=== PATIENT | female | born 1940 | race Caucasian/White ===

== ENCOUNTER 2016-10-13 20:38 | Emergency (ER) | payer MEDICARE, OTHER ==
--- NOTE | 2016-10-13 20:48 | ERNOTE ---
Chest Pain/Cardiac HPI Time Seen by Provider: 10/13/16 20:44 Source: patient Exam Limitations: clinical condition Immunizations: IMMUNIZATION HX Immunizations Up to Date Yes History of Influenza Vaccine Yes Hx Pneumococcal Vaccination Yes Allergies/Adverse Reactions: Allergies chocolate flavor Allergy (Intermediate, Verified 06/29/16 08:44) Anaphylaxis ibuprofen Allergy (Mild, Verified 06/29/16 08:44) Nausea aspirin Adverse Reaction (Mild, Verified 06/29/16 08:44) Vomiting UPSET STOMACH Penicillins Adverse Reaction (Mild, Verified 06/29/16 08:44) Vomiting UPSET STOMACH Salicylates * [Salicylates] Adverse Reaction (Mild, Verified 06/29/16 08:44) Nausea Sulfa (Sulfonamide Antibiotics) [Sulfa(Sulfonamide Antibiotics)] Adverse Reaction (Mild, Verified 06/29/16 08:44) Vomiting UPSET STOMACH cabbage Allergy (Mild, Uncoded 06/29/16 08:44) Other Home Medications: HOME MEDICATIONS Aspirin [Aspirin Enteric Coated] 81 mg PO DAILY 09/09/13 [Last Taken Unknown] Gabapentin 400 mg PO TID 09/09/13 [Last Taken Unknown] Pramipexole Di-HCl [Mirapex] 0.125 mg PO HS 09/09/13 [Last Taken Unknown] Pravastatin Sodium 40 mg PO DAILY 09/09/13 [Last Taken Unknown] lamoTRIgine [Lamictal] 100 mg PO DAILY 09/09/13 [Last Taken Unknown] Bisacodyl [Dulcolax] 5 mg PO DAILY PRN 01/05/14 [Last Taken Unknown] Nitroglycerin 0.4 mg SL Q5MIN PRN 01/05/14 [Last Taken Unknown] ALPRAZolam [Xanax] 0.25 mg PO BID PRN 05/11/14 [Last Taken Unknown] Bupropion HCl [Wellbutrin Xl] 300 mg PO DAILY 05/11/14 [Last Taken Unknown] Omeprazole [Prilosec] 40 mg PO DAILY 05/11/14 [Last Taken Unknown] Tolterodine Tartrate [Detrol LA] 2 mg PO DAILY 12/22/15 [Last Taken Unknown] Clopidogrel Bisulfate [Plavix] 75 mg PO DAILY 12/27/15 [Last Taken Unknown] Cyanocobalamin [Vitamin B-12] 500 mcg PO DAILY 12/27/15 [Last Taken Unknown] Hydrocodone/Acetaminophen [[place] 5-325 Tablet] 1 each PO QID PRN 12/27/15 [Last Taken Unknown] Albuterol Sulfate 2.5 mg IH BID PRN 12/28/15 [Last Taken Unknown] Cholecalciferol (Vitamin D3) [Vitamin D3] 3,000 unit PO DAILY 12/28/15 [Last Taken Unknown] Nystatin [Mycostatin Cream] 30 gm TP BID 03/24/16 [Last Taken Unknown] Narrative: Pt has had epigastric abdominal and substernal pain throughout the day. Had some sweats later on in the afternoon. Has been short of breath Timing: constant Severity/Quality: moderate Location: substernal, central, epigastric Chest Pain Radiation: no radiation Activities at Onset: none Nitro Today/Relief: 0.4 mg x 1, provided by EMS Aspirin Treatment Today: 81 mg x 1, provided at home Associated Symptoms: Present: shortness of breath Review of Systems - Review of Systems Constitutional: Present: weakness EYE: Present: no symptoms reported ENT: Absent: nose congestion, nasal drainage Respiratory: Present: shortness of breath Cardiology: Present: See HPI Gastrointestinal/Abdominal: Present: See HPI Genitourinary: Present: no symptoms reported Musculoskeletal: Present: no symptoms reported Skin: Present: no symptoms reported Neurological: Present: no symptoms reported Endocrine: Present: no symptoms reported Hematologic/Lymphatic: Present: no symptoms reported Psych: Present: no symptoms reported - Patient's Past Medical History Patient History - Medical: Arthritis, Diabetes Type 2, Depression, GERD, Glaucoma, Headache, Obesity, Renal Failure Patient History - Cardiac/Respiratory: CVA/Stroke, Hypertension, Hyperlipidemia Patient History - Cancer: No Hx of Cancer, Ovarian Patient History - Surgical Procedures: Cholecystectomy, Colonoscopy, D & C, EGD , Hysterectomy, Total Hip Replacement, Total Knee Replacement, Other Patient History - Other: None - Family History Mother Family History - Medical: Family History - Cardiac/Respiratory: Coronary Heart Disease, CHF Father Family History - Medical: Family History - Cardiac/Respiratory: Coronary Heart Disease, CHF - Social History Living Situations: home Abuse History: No History of abuse Psych History: No pertinent hx Alcohol Use: none Drug Use: none - Immunizations Immunizations Up to Date: Yes Hx Pneumococcal Vaccination: Yes History of Influenza Vaccine: Yes Physical Exam - Physical Exam General Appearance: Present: wd/wn, alert, mild distress Ears, Nose, Throat: Present: normal ENT inspection Neck: Present: normal inspection, nontender Respiratory: Present: no respiratory distress, normal breath sounds, no accessory muscle use Cardiovascular/Chest: Present: regular rate, rhythm, no murmur, normal peripheral pulses Gastrointestinal/Abdominal: Present: tenderness - epigastric and RUQ mild/ mod Extremity Exam: Present: pedal edema - 1+ Neurological Exam: Present: alert, oriented, normal mood/affect Skin Exam: Present: normal color, warm/dry Departure - Departure Clinical Impression: Bronchitis Disposition: Home self-care Condition: Good Instructions: Acute Bronchitis, [id number] Additional Instructions: See your regular doctor if not improving. Use a humidifier especially when you sleep. May use mucinex 600 mg twice day if needed
[2016-10-13 21:17] LABS: Hematocrit 38.8 % (37.0-47.0); Hemoglobin 11.6 gm/dL (12.5-16.0); Mean Cell Volume 92.2 fl (78-100); Mean Corpuscular Hemoglobin 27.6 pg (27-31); Mean Corpuscular Hgb Conc 29.9 g/dl (32-36); Mean Platelet Volume 9.9 fl (6.0-9.5); Neutrophil # 3.4 K/mm3 (1.3-6.0); Neutrophil % 60.8 % (42-75.0); Platelet Count 144 K/mm3 (150-450); Red Blood Count 4.21 M/mm3 (4.2-5.4); Red Cell Distribution Width 14.5 % (11.5-14.0); White Blood Count 5.6 K/mm3 (4.0-10.5)
--- OUTSIDE RECORDS SUMMARY | 2016-10-13 21:21 | XMS REPORT | Continuity of Care Document ---
:1940 Author Organization [facility] ([facility]) Address [address] [place] [address] Phone [phone] Care Team Providers Name Role Phone Juan C Khanna Primary Care Provider [phone] Source Comments This disclosure is being made pursuant to the Care Everywhere program, applicable federal and state laws, and may not contain all informaitonavailable regarding this patient.[facility] ([facility]) Active Allergies and Adverse Reactions Allergen Noted Date Severity Reactions Comments Aspirin Stomach Pain can take enteric coated aspirin Cabbage Juice Unknown Chocolate Flavor Unknown Sulfadoxine Nausea & Vomiting,Stomach Pain Current Medications Prescription Sig. Disp. Refills Start Date End Date Status aspirin 81 mg tablet Take 81 mg by mouth Active daily. HYDROcodone-acetamino Take 1 Tab by mouth Active phen 5-325 mg per every 4 hours as tablet needed. nystatin 100,000 apply topically 2 Active unit/g ointment times daily. albuterol 2.5 mg/3 mL Use 3 mL by inhalation Active inhalation solution every 4 hours as needed. albuterol 90 Use 1-2 Puffs by Active mcg/Actuation inhaler inhalation every 4 hours as needed. nitroglycerin 0.[address] 0.4 mg under the Active SL tablet tongue every 5 minutes as needed. lamoTRIgine 100 mg Take 100 mg by mouth Active tablet daily. acetaminophen Take 500 mg by mouth Active (TYLENOL EXTRA every 6 hours as STRENGTH) 500 mg needed. tablet pramipexole 0.125 mg Take 0.125 mg by mouth Active tablet at bedtime. buPROPion (WELLBUTRIN Take 300 mg by mouth Active XL) 300 mg extended Every morning. release tablet 24 hour lisinopril 5 mg Take 5 mg by mouth Active tablet daily. promethazine 25 mg Take 12.5 mg by mouth Active tablet every 4 hours as needed. pravastatin 40 mg Take 40 mg by mouth Active tablet every evening. bisacodyl 5 mg tablet Take 5 mg by mouth as Active needed. cholecalciferol Take 1,000 Units by Active (VITAMIN D3) 1,000 mouth daily. unit tablet iron polysaccharide Take 150 mg by mouth 2 Active complex (POLY-IRON) times daily. 150 mg capsule glimepiride 1 mg Take 1 mg by mouth Active tablet Every morning. cyanocobalamin Take 500 mcg by mouth Active (VITAMIN B-12) 500 daily. mcg tablet pantoprazole 40 mg EC Take 40 mg by mouth Active tablet daily. gabapentin 300 mg Take 300 mg by mouth 3 Active capsule times daily. famotidine 20 mg Take 1 Tab by mouth 30 Tab 2 08/27/2013 Active tablet every evening. Indications: GASTROESOPHAGEAL REFLUX Active Problems Problem Noted Date Dysphagia 11/29/2012 EDENTULOUS 11/29/2012 DM type 2 (diabetes mellitus, type 2) 11/29/2012 Overview: Last A1C 5.8% Resolved Problems Problem Noted Date Resolved Date Dizziness and giddiness 07/07/2006 11/29/2012 Other malaise and fatigue 07/07/2006 11/29/2012 Nausea with vomiting 07/07/2006 11/29/2012 Social History Tobacco Use Types Packs/Day Years Used Date Former Smoker Cigarettes 2 25 Quit: 08/31/1989 Smokeless Tobacco: Never Used Alcohol Use Drinks/Week oz/Week Comments No Last Filed Vital Signs Vital Sign Reading Time Taken Blood Pressure 148/86 11/29/2012 8:46 AM CDT Pulse 71 11/29/2012 8:46 AM CDT Temperature 37.1 C (98.8 F) 11/29/2012 8:40 AM CDT Respiratory Rate 20 11/29/2012 8:40 AM CDT Height 1.65 m (5' 4.96") 11/29/2012 8:40 AM CDT Weight 107.049 kg (236 lb) 11/29/2012 8:40 AM CDT Body Mass Index 39.32 11/29/2012 8:40 AM CDT Oxygen Saturation - - Plan of Care Health Maintenance Due Date Last Done Comments Hepatitis B Vaccine (1 of 3 - Primary Series) 1940 Tdap Vaccine 02/19/1951 Lipid Disorder Screening 02/19/1958 Td Vaccine 02/19/1958 Mammogram 1980 Colonoscopy 02/19/1990 Zoster Vaccine 2000 Osteoporosis Screening (DXA Bone Density) 02/19/2005 Pneumococcal Vaccine (1 of 2 - PCV13) 02/19/2005 Influenza Vaccine: Seasonal (#1) 03/28/2016 Results from Last 3 Months Not on file
[2016-10-13 21:27] LABS: ALT 19 U/L (19-67); AST 20 U/L (0-48); Albumin * 3.5 gm/dl (3.4-5.0); Alkaline Phosphatase * 85 U/L (50-170); Amylase * 41 U/L (25-115); Anion Gap 11.4 mmol/L (6.8-13.8); BUN/Creatinine Ratio 9.1 (9.0-21.6); Bilirubin, Total 0.2 mg/dL (0.0-1.1); Blood Urea Nitrogen 15 mg/dL (3-23); Ca. Corrected For Albumin 9.1 mg/dL (8.4-10.2); Carbon Dioxide 29.7 mmol/L (24-32.6); Chloride 105 mmol/L (97-106); Glucose * 125 mg/dL (70-110); Lipase 108 U/L (73-393); Potassium 4.1 mmol/L (3.4-4.6); Sodium 142 mmol/L (132-142); Total Protein 7.2 gm/dL (6.2-8.2)
[2016-10-13 21:28] LABS: Troponin I Less than 0.017 ng/ml (0.00-0.10)
[2016-10-14 02:05] VITALS: BP 144/62
== END 2016-10-14 02:00 | disposition home or self-care (01) ==
LOC: ER 20:38
DX: J20.9 Acute bronchitis, unspecified (principal)

== ENCOUNTER 2016-10-31 17:15 | Emergency (ER) | payer MEDICARE, OTHER ==
--- NOTE | 2016-10-31 18:05 | ERNOTE ---
Medical Problem HPI - General Chief Complaint: Foreign Body Time Seen by Provider: 10/31/16 17:52 Source: patient Exam Limitations: no limitations - Immun/Allergies/Home Medications Immunizations: IMMUNIZATION HX Immunizations Up to Date Yes History of Influenza Vaccine Yes Hx Pneumococcal Vaccination Yes Allergies/Adverse Reactions: Allergies chocolate flavor Allergy (Intermediate, Verified 10/31/16 17:21) Anaphylaxis ibuprofen Allergy (Mild, Verified 10/31/16 17:21) Nausea aspirin Adverse Reaction (Mild, Verified 10/31/16 17:21) Vomiting UPSET STOMACH Penicillins Adverse Reaction (Mild, Verified 10/31/16 17:21) Vomiting UPSET STOMACH Salicylates * [Salicylates] Adverse Reaction (Mild, Verified 10/31/16 17:21) Nausea Sulfa (Sulfonamide Antibiotics) [Sulfa(Sulfonamide Antibiotics)] Adverse Reaction (Mild, Verified 10/31/16 17:21) Vomiting UPSET STOMACH cabbage Allergy (Mild, Uncoded 10/31/16 17:21) Other Home Medications: HOME MEDICATIONS Aspirin [Aspirin Enteric Coated] 81 mg PO DAILY 09/09/13 [Last Taken Unknown] Gabapentin 400 mg PO TID 09/09/13 [Last Taken Unknown] Pramipexole Di-HCl [Mirapex] 0.125 mg PO HS 09/09/13 [Last Taken Unknown] Pravastatin Sodium 40 mg PO DAILY 09/09/13 [Last Taken Unknown] lamoTRIgine [Lamictal] 100 mg PO DAILY 09/09/13 [Last Taken Unknown] Bisacodyl [Dulcolax] 5 mg PO DAILY PRN 01/05/14 [Last Taken Unknown] Nitroglycerin 0.4 mg SL Q5MIN PRN 01/05/14 [Last Taken Unknown] ALPRAZolam [Xanax] 0.25 mg PO BID PRN 05/11/14 [Last Taken Unknown] Bupropion HCl [Wellbutrin Xl] 300 mg PO DAILY 05/11/14 [Last Taken Unknown] Omeprazole [Prilosec] 40 mg PO DAILY 05/11/14 [Last Taken Unknown] Tolterodine Tartrate [Detrol LA] 2 mg PO DAILY 12/22/15 [Last Taken Unknown] Clopidogrel Bisulfate [Plavix] 75 mg PO DAILY 12/27/15 [Last Taken Unknown] Cyanocobalamin [Vitamin B-12] 500 mcg PO DAILY 12/27/15 [Last Taken Unknown] Hydrocodone/Acetaminophen [[place] 5-325 Tablet] 1 each PO QID PRN 12/27/15 [Last Taken Unknown] Albuterol Sulfate 2.5 mg IH BID PRN 12/28/15 [Last Taken Unknown] Cholecalciferol (Vitamin D3) [Vitamin D3] 3,000 unit PO DAILY 12/28/15 [Last Taken Unknown] Nystatin [Mycostatin Cream] 30 gm TP BID 03/24/16 [Last Taken Unknown] - History of Present History Narrative: Patient was sowing and put a safety pin between her lips and felt that she accidentally swallowed it. She tried to dig it out with her fingers and still feels like there is something in her throat, denies cough, nausea, vomiting or pain Date (Duration): 10/31/16 Review of Systems - Review of Systems Constitutional: Absent: recent illness, fever ENT: Present: See HPI, sore throat. Absent: nose congestion Respiratory: Absent: shortness of breath, cough Cardiology: Absent: chest pain Gastrointestinal/Abdominal: Absent: nausea, vomiting, abdominal pain - Patient's Past Medical History Patient History - Medical: Arthritis, Diabetes Type 2, Depression, GERD, Glaucoma, Headache, Obesity, Renal Failure Patient History - Cardiac/Respiratory: CVA/Stroke, Hypertension, Hyperlipidemia Patient History - Cancer: No Hx of Cancer, Ovarian Patient History - Surgical Procedures: Cholecystectomy, Colonoscopy, D & C, EGD , Hysterectomy, Total Hip Replacement, Total Knee Replacement, Other Patient History - Other: None LMP (females 10-50): Menopausal - Family History Mother Family History - Medical: Family History - Cardiac/Respiratory: Coronary Heart Disease, CHF Father Family History - Medical: Family History - Cardiac/Respiratory: Coronary Heart Disease, CHF - Social History Living Situations: home Abuse History: No History of abuse Psych History: No pertinent hx Alcohol Use: none Drug Use: none - Immunizations Immunizations Up to Date: Yes Hx Pneumococcal Vaccination: Yes History of Influenza Vaccine: Yes Physical Exam - Physical Exam General Appearance: Present: wd/wn, alert, no apparent distress, obese Eye Exam: Normal inspection: bilateral Ears, Nose, Throat: Present: other - superficial abrasion on posterior pharynx, no active bleeding Neck: Present: normal inspection Respiratory: Present: no respiratory distress, normal breath sounds, no accessory muscle use, lungs clear Cardiovascular/Chest: Present: regular rate, rhythm, no murmur Gastrointestinal/Abdominal: Present: normal bowel sounds, nontender, nondistended, soft Neurological Exam: Present: alert, oriented, normal mood/affect Skin Exam: Present: normal color, warm/dry ED Progress - Vital Signs Patient's Vital Signs:: I have reviewed the patient's vital signs. Vital Signs: Vital Signs 10/31/16 17:17 Temperature 38.0 C H Pulse Rate 83 Respiratory 19 Rate Blood Pressure 174/78 O2 Sat by Pulse 93 Oximetry - X-Ray X-Ray #1 X-Ray: chest - no foreign body Interpretation: Interp. by me X-Ray #2 X-Ray: abdomen - no foreign body Interpretation: Interp. by me X-Ray #3 X-Ray: soft tissue neck: no foreign body Interpretation: Interp. by me - Progress/Reassessment Chief Complaint: Foreign Body Departure - Departure Clinical Impression: Abrasion of pharynx Qualifiers: Encounter type: initial encounter Qualified Code(s): S10.11XA - Abrasion of throat, initial encounter Disposition: Home self-care Condition: Good Instructions: Swallowed Foreign Body, Adult, [id number] Referrals: Juan C Khanna MD [Staff Physician] -
--- OUTSIDE RECORDS SUMMARY | 2016-10-31 18:06 | XMS REPORT | Continuity of Care Document ---
:1940 Author Organization [facility] ([facility]) Address [address] [place] [address] Phone [phone] Care Team Providers Name Role Phone Juan C Khanna Primary Care Provider [phone] Source Comments This disclosure is being made pursuant to the Care Everywhere program, applicable federal and state laws, and may not contain all informaitonavailable regarding this patient.[facility] ([facility]) Active Allergies and Adverse Reactions [...]
[2016-10-31 19:27] VITALS: BP 142/88
== END 2016-10-31 19:00 | disposition home or self-care (01) ==
LOC: ER 17:15
DX: S10.11XA Abrasion of throat, initial encounter (principal); X58.XXXA Exposure to other specified factors, initial encounter; Y93.D2 Activity, sewing; Y92.009 Unspecified place in unspecified non-institutional (private) residence as the place of occurrence of the external cause

== ENCOUNTER 2016-12-09 12:38 | Emergency (ER) | payer MEDICARE, OTHER ==
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
--- OUTSIDE RECORDS SUMMARY | 2016-12-09 13:51 | XMS REPORT | Continuity of Care Document ---
:1940 Author Organization [facility] ([facility]) Address [address] [place] [address] Phone [phone] Care Team Providers Name Role Phone Juan C Khanna Primary Care Provider [phone] Source Comments This disclosure is being made pursuant to the Care Everywhere program, applicable federal and state laws, and may not contain all informaitonavailable regarding this patient.[facility] ([facility]) Active Allergies and Adverse Reactions [...]
[2016-12-09 13:58] LABS: Hematocrit 34.3 % (37.0-47.0); Hemoglobin 10.2 gm/dL (12.5-16.0); Mean Cell Volume 92.5 fl (78-100); Mean Corpuscular Hemoglobin 27.5 pg (27-31); Mean Corpuscular Hgb Conc 29.7 g/dl (32-36); Mean Platelet Volume 9.5 fl (6.0-9.5); Neutrophil # 6.5 K/mm3 (1.3-6.0); Neutrophil % 78.8 % (42-75.0); Platelet Count 136 K/mm3 (150-450); Red Blood Count 3.71 M/mm3 (4.2-5.4); White Blood Count 8.2 K/mm3 (4.0-10.5)
[2016-12-09 13:59] LABS: Urine Bilirubin Negative (NEGATIVE); Urine Blood 250 /ul (NEGATIVE); Urine Ketone Negative (NEGATIVE); Urine Nitrite Negative (NEGATIVE); Urine Protein 30 mg/dL (NEGATIVE); Urine Urobilinogen Normal (NORMAL); Urine pH 6.5 pH (5.0-7.0)
[2016-12-09 14:09] LABS: Urine Appearance Slightly Cloudy; Urine Color Yellow
[2016-12-09 14:10] LABS: Urine Bacteria TRACE; Urine WBC None Seen /hpf (0-5)
[2016-12-09 14:14] LABS: Albumin * 3.7 gm/dl (3.4-5.0); Anion Gap 11.1 mmol/L (6.8-13.8); Bilirubin, Total 0.4 mg/dL (0.0-1.1); Ca. Corrected For Albumin 8.7 mg/dL (8.4-10.2); Calcium * 8.8 mg/dL (7.9-10.9); Potassium 4.1 mmol/L (3.4-4.6); TSH * 1.045 uIU/mL (0.358-3.74); Total Protein 7.2 gm/dL (6.2-8.2)
[2016-12-09] MEDS ORDERED: ACETAMINOPHEN 325 MG TABLET ONE (16:44)
[2016-12-09] MEDS ORDERED: ACETAMINOPHEN 325 MG TABLET PO ONE (16:44)
[2016-12-09 18:05] VITALS: BP 119/54
== END 2016-12-09 20:01 | disposition home or self-care (01) ==
LOC: ER 12:38
DX: R53.1 Weakness (principal); Z85.43 Personal history of malignant neoplasm of ovary; Z86.73 Personal history of transient ischemic attack (TIA), and cerebral infarction without residual deficits; E11.9 Type 2 diabetes mellitus without complications; K21.9 Gastro-esophageal reflux disease without esophagitis; E78.5 Hyperlipidemia, unspecified

== ENCOUNTER 2016-12-21 07:03 | Observation (INO) | payer MEDICARE, OTHER ==
--- NOTE | 2016-12-21 07:07 | ERNOTE ---
Medical Problem HPI - General Time Seen by Provider: 12/21/16 07:06 Source: patient Exam Limitations: no limitations - Immun/Allergies/Home Medications Immunizations: IMMUNIZATION HX Immunizations Up to Date Yes History of Influenza Vaccine Yes Hx Pneumococcal Vaccination Yes Allergies/Adverse Reactions: Allergies chocolate flavor Allergy (Intermediate, Verified 12/21/16 07:10) Anaphylaxis ibuprofen Allergy (Mild, Verified 12/21/16 07:10) Nausea aspirin Adverse Reaction (Mild, Verified 12/21/16 07:10) Vomiting UPSET STOMACH Penicillins Adverse Reaction (Mild, Verified 12/21/16 07:10) Vomiting UPSET STOMACH Salicylates * [Salicylates] Adverse Reaction (Mild, Verified 12/21/16 07:10) Nausea Sulfa (Sulfonamide Antibiotics) [Sulfa(Sulfonamide Antibiotics)] Adverse Reaction (Mild, Verified 12/21/16 07:10) Vomiting UPSET STOMACH cabbage Allergy (Mild, Uncoded 12/21/16 07:10) Other Home Medications: HOME MEDICATIONS Aspirin [Aspirin Enteric Coated] 81 mg PO DAILY 09/09/13 [Last Taken Unknown] Gabapentin 400 mg PO TID 09/09/13 [Last Taken Unknown] Pramipexole Di-HCl [Mirapex] 0.125 mg PO HS 09/09/13 [Last Taken Unknown] Pravastatin Sodium 40 mg PO DAILY 09/09/13 [Last Taken Unknown] lamoTRIgine [Lamictal] 100 mg PO DAILY 09/09/13 [Last Taken Unknown] Bisacodyl [Dulcolax] 5 mg PO DAILY PRN 01/05/14 [Last Taken Unknown] Nitroglycerin 0.4 mg SL Q5MIN PRN 01/05/14 [Last Taken Unknown] ALPRAZolam [Xanax] 0.25 mg PO BID PRN 05/11/14 [Last Taken Unknown] Bupropion HCl [Wellbutrin Xl] 300 mg PO DAILY 05/11/14 [Last Taken Unknown] Omeprazole [Prilosec] 40 mg PO DAILY 05/11/14 [Last Taken Unknown] Tolterodine Tartrate [Detrol LA] 2 mg PO DAILY 12/22/15 [Last Taken Unknown] Clopidogrel Bisulfate [Plavix] 75 mg PO DAILY 12/27/15 [Last Taken Unknown] Cyanocobalamin [Vitamin B-12] 500 mcg PO DAILY 12/27/15 [Last Taken Unknown] HYDROcodone/ACETAMINOPHEN [[place] 5-325 Tablet] 1 each PO QID PRN 12/27/15 [Last Taken Unknown] Albuterol Sulfate 2.5 mg IH BID PRN 12/28/15 [Last Taken Unknown] Cholecalciferol (Vitamin D3) [Vitamin D3] 3,000 unit PO DAILY 12/28/15 [Last Taken Unknown] Nystatin [Mycostatin Cream] 30 gm TP BID 03/24/16 [Last Taken Unknown] - History of Present History Narrative: Pt states that she "just doesn't feel well". She points to her chest but denies chest pain, denies shortness of breath. Timing: getting worse Severity: mild, moderate Review of Systems - Review of Systems Constitutional: Present: fatigue. Absent: recent illness, fever EYE: Present: no symptoms reported ENT: Present: no symptoms reported Respiratory: Absent: shortness of breath Cardiology: Absent: chest pain Gastrointestinal/Abdominal: Absent: nausea, vomiting Genitourinary: Present: frequency. Absent: pain, dysuria Musculoskeletal: Present: no symptoms reported Skin: Present: no symptoms reported Neurological: Present: weakness - in general Endocrine: Present: no symptoms reported Hematologic/Lymphatic: Present: no symptoms reported Psych: Present: no symptoms reported - Patient's Past Medical History Patient History - Medical: Arthritis, Diabetes Type 2, Depression, GERD, Glaucoma, Headache, Obesity, Renal Failure Patient History - Cardiac/Respiratory: CVA/Stroke, Hypertension, Hyperlipidemia Patient History - Cancer: Ovarian Patient History - Surgical Procedures: Cholecystectomy, Colonoscopy, D & C, EGD , Hysterectomy, Total Hip Replacement, Total Knee Replacement, Other Patient History - Other: None - Family History Mother Family History - Medical: Family History - Cardiac/Respiratory: Coronary Heart Disease, CHF Father Family History - Medical: Family History - Cardiac/Respiratory: Coronary Heart Disease, CHF - Social History Living Situations: assisted living Abuse History: No History of abuse Psych History: No pertinent hx Alcohol Use: none Drug Use: none - Immunizations Immunizations Up to Date: Yes Hx Pneumococcal Vaccination: Yes History of Influenza Vaccine: Yes Physical Exam - Physical Exam General Appearance: Present: wd/wn, alert, no apparent distress Ears, Nose, Throat: Present: normal ENT inspection Neck: Present: normal inspection, nontender Respiratory: Present: no respiratory distress, normal breath sounds Cardiovascular/Chest: Present: regular rate, rhythm, no murmur Gastrointestinal/Abdominal: Present: normal bowel sounds, tenderness - bilateral mid abdomen. Absent: distended, guarding, rebound Neurological Exam: Present: alert, oriented, normal mood/affect Skin Exam: Present: normal color, warm/dry ED Progress - Transfer of Care Physician Sign Out: Harry Rock Receiving Physician: Jared Silva Pending Results: Labs, X-ray results Expected Disposition: Discharge Departure - Departure Clinical Impression: UTI (urinary tract infection) Referrals: Juan C Khanna MD [Primary Care Provider] -
--- OUTSIDE RECORDS SUMMARY | 2016-12-21 07:20 | XMS REPORT | Continuity of Care Document ---
:1940 Author Organization [facility] ([facility]) Address [address] [place] [address] Phone [phone] Care Team Providers Name Role Phone Juan C Khanna Primary Care Provider [phone] Source Comments This disclosure is being made pursuant to the Care Everywhere program, applicable federal and state laws, and may not contain all informaitonavailable regarding this patient.[facility] ([facility]) Active Allergies and Adverse Reactions Allergen Noted [...]
[2016-12-21 07:38] LABS: Hematocrit 35.4 % (37.0-47.0); Hemoglobin 10.6 gm/dL (12.5-16.0); Mean Cell Volume 91.5 fl (78-100); Mean Corpuscular Hemoglobin 27.4 pg (27-31); Mean Corpuscular Hgb Conc 29.9 g/dl (32-36); Mean Platelet Volume 8.9 fl (6.0-9.5); Neutrophil # 4.2 K/mm3 (1.3-6.0); Neutrophil % 79.1 % (42-75.0); Platelet Count 136 K/mm3 (150-450); Red Blood Count 3.87 M/mm3 (4.2-5.4); White Blood Count 5.3 K/mm3 (4.0-10.5)
[2016-12-21 07:42] LABS: Urine Bilirubin Negative (NEGATIVE); Urine Blood 25 /ul (NEGATIVE); Urine Ketone Negative (NEGATIVE); Urine Nitrite Negative (NEGATIVE); Urine Protein 15 mg/dL (NEGATIVE); Urine Specific Gravity 1.015 SP.GR. (1.005-1.010); Urine Urobilinogen Normal (NORMAL)
[2016-12-21 07:52] LABS: Urine Appearance Cloudy; Urine Bacteria 3+; Urine Color Pale Yellow; Urine WBC >50 /hpf (0-5)
[2016-12-21 07:53] LABS: Albumin * 3.4 gm/dl (3.4-5.0); Anion Gap 10.8 mmol/L (6.8-13.8); BUN/Creatinine Ratio 10.4 (9.0-21.6); Bilirubin, Total 0.4 mg/dL (0.0-1.1); Ca. Corrected For Albumin 9.4 mg/dL (8.4-10.2); Calcium * 9.2 mg/dL (7.9-10.9); Carbon Dioxide 30.6 mmol/L (24-32.6); Potassium 4.4 mmol/L (3.4-4.6); Total Protein 7.4 gm/dL (6.2-8.2)
[2016-12-21] MEDS ORDERED: LEVOFLOXACIN/D5W 500 MG/100 ML BAG IV SCH (08:30)
[2016-12-21] MEDS ORDERED: ACETAMINOPHEN 500 MG TABLET PO ONE (08:59)
[2016-12-21] MEDS ORDERED: LEVOFLOXACIN/D5W 500 MG/100 ML BAG IV ONE (09:15)
--- OUTSIDE RECORDS SUMMARY | 2016-12-21 09:35 | XMS REPORT | Continuity of Care Document ---
:1940 Author Organization [facility] ([facility]) Address [address] [place] [address] Phone [phone] Care Team Providers Name Role Phone Juan C Khanna Primary Care Provider [phone] Source Comments This disclosure is being made pursuant to the Care Everywhere program, applicable federal and state laws, and may not contain all informaitonavailable regarding this patient.[facility] ([facility]) Active Allergies and Adverse Reactions Allergen Noted [...]
[2016-12-21] MEDS ORDERED: NITROGLYCERIN 0.4 MG/TAB BTL SL PRN (11:00)
[2016-12-21] MEDS ORDERED: BISACODYL 5 MG TABLET.DR PO PRN (11:00)
[2016-12-21] MEDS ORDERED: ALBUTEROL SULFATE 2.5 MG/3 ML VIAL.NEB IH PRN (11:00)
[2016-12-21] MEDS: 0.5 NORMAL SALINE 1,000 ML IV PRN ×2 (12:11→22:21)
[2016-12-21] MEDS: CIPROFLOXACIN LACTATE/D5W 400 MG/200 ML BAG IV SCH ×2 (12:11→22:21)
--- NOTE | 2016-12-21 12:13 | HP ---
Chief Complaint - Chief Complaint Date of Service: 12/21/16 Time of Service: 12:03 Chief Complaint: generalized weakness/falls History of Present Illness: Betzy Matute, is a 76-year-old white female, with previous medical history of coronary artery disease, CVA, diabetes mellitus type 2, chronic renal failure stage III, hypertension, who was brought to the emergency room on 12/21/2016 because of generalized weakness and falls. The patient for the last few days has been getting much more weaker and has had been having falls . She says that her knees would just give out on her. In the emergency room she was found to have a urinary tract infection for which she was started on oral antibiotics and sent home. She came back the following day still with generalized weakness and just felt that she just could not go home. She was then admitted for observation and started on IV antibiotics awaiting cultures. She will be referred to physical therapy and be started on some IV fluids.She does not want to go to a NH to get stronger before going home. - Patient's Past Medical History Patient History - Medical: Arthritis, Diabetes Type 2, Depression, GERD, Glaucoma, Headache, Obesity, Renal Failure Patient History - Cardiac/Respiratory: CVA/Stroke, Hypertension, Hyperlipidemia Patient History - Cancer: Ovarian Patient History - Surgical Procedures: Cholecystectomy, Colonoscopy, D & C, EGD , Hysterectomy, Total Hip Replacement, Total Knee Replacement, Other Patient History - Other: None - Family History Mother Family History - Medical: Family History - Cardiac/Respiratory: Coronary Heart Disease, CHF Father Family History - Medical: Family History - Cardiac/Respiratory: Coronary Heart Disease, CHF - Social History Living Situations: assisted living Abuse History: No History of abuse Psych History: No pertinent hx Smoking Status: Former smoker Have you smoked in the past 12 months: No Alcohol Use: none Drug Use: none - Immunizations Immunizations Up to Date: Yes Hx Pneumococcal Vaccination: Yes History of Influenza Vaccine: Yes Review Of Systems (GEN) - Review of Systems Generalized/Overall Review: Present: Weakness. Absent: Chills, Fever EENTM: Present: No Symptoms Reported Respiratory: Present: Shortness of Breath. Absent: Cough Cardiac: Absent: Chest Pain, Edema, Palpitations Abdominal: Present: Other - dyspepsia. Absent: Nausea, Vomiting Genitourinary: Present: Frequency. Absent: Itching, Urgency Musculoskeletal: Present: Joint Pain Allergies/Adverse Reactions: Allergies Allergy/AdvReac Type Severity Reaction Status Date / Time chocolate flavor Allergy Intermediate Anaphylaxis Verified 12/21/16 07:10 ibuprofen Allergy Mild Nausea Verified 12/21/16 07:10 aspirin AdvReac Mild Vomiting Verified 12/21/16 07:10 Penicillins AdvReac Mild Vomiting Verified 12/21/16 07:10 Salicylates * [Salicylates] AdvReac Mild Nausea Verified 12/21/16 07:10 Sulfa (Sulfonamide AdvReac Mild Vomiting Verified 12/21/16 07:10 Antibiotics) [Sulfa(Sulfonamide Antibiotics)] cabbage Allergy Mild Other Uncoded 12/21/16 07:10 Home Medications: HOME MEDICATIONS Aspirin [Aspirin Enteric Coated] 81 mg PO DAILY 09/09/13 [Last Taken Unknown] Gabapentin 400 mg PO TID 09/09/13 [Last Taken Unknown] Pramipexole Di-HCl [Mirapex] 0.125 mg PO HS 09/09/13 [Last Taken Unknown] Pravastatin Sodium 40 mg PO DAILY 09/09/13 [Last Taken Unknown] lamoTRIgine [Lamictal] 100 mg PO DAILY 09/09/13 [Last Taken Unknown] Bisacodyl [Dulcolax] 5 mg PO DAILY PRN 01/05/14 [Last Taken Unknown] Nitroglycerin 0.4 mg SL Q5MIN PRN 01/05/14 [Last Taken Unknown] ALPRAZolam [Xanax] 0.25 mg PO BID PRN 05/11/14 [Last Taken Unknown] Bupropion HCl [Wellbutrin Xl] 300 mg PO DAILY 05/11/14 [Last Taken Unknown] Omeprazole [Prilosec] 40 mg PO DAILY 05/11/14 [Last Taken Unknown] Tolterodine Tartrate [Detrol LA] 2 mg PO DAILY 12/22/15 [Last Taken Unknown] Clopidogrel Bisulfate [Plavix] 75 mg PO DAILY 12/27/15 [Last Taken Unknown] Cyanocobalamin [Vitamin B-12] 500 mcg PO DAILY 12/27/15 [Last Taken Unknown] HYDROcodone/ACETAMINOPHEN [[place] 5-325 Tablet] 1 each PO QID PRN 12/27/15 [Last Taken Unknown] Albuterol Sulfate 2.5 mg IH BID PRN 12/28/15 [Last Taken Unknown] Cholecalciferol (Vitamin D3) [Vitamin D3] 3,000 unit PO DAILY 12/28/15 [Last Taken Unknown] Nystatin [Mycostatin Cream] 30 gm TP BID 03/24/16 [Last Taken Unknown] Exam - Exam Vital Signs: Vital Signs - Last Taken Temp 36.7 C 12/21/16 09:56 Pulse 75 12/21/16 09:56 Resp 16 12/21/16 09:56 BP 130/78 12/21/16 09:56 Pulse Ox 98 12/21/16 09:56 Constitutional: Present: Alert, Oriented x3, Cooperative, Morbidly obese ENT Exam: Present: hearing grossly normal Eye Exam: bilateral eye: normal inspection, PERRL, EOMI Neck: Present: supple Back Exam: Present: no CVA tenderness Breasts: Present: Exam deferred Respiratory: Present: normal breath sounds, No rales, No wheezing Cardiovascular/Chest: Present: regular rate, rhythm, no JVD, no murmur Abdomen: Present: Normal bowel sounds, soft, nontender, nondistended Extremity: Present: no calf tenderness, pedal edema Diagnostic Studies: Laboratory Results WBC 5.3 K/mm3 (4.0-10.5) 12/21/16 07:30 RBC 3.87 M/mm3 (4.2-5.4) L 12/21/16 07:30 Hgb 10.6 gm/dL (12.5-16.0) L 12/21/16 07:30 Hct 35.4 % (37.0-47.0) L 12/21/16 07:30 MCV 91.5 fl (78-100) 12/21/16 07:30 MCH 27.4 pg (27-31) 12/21/16 07:30 MCHC 29.9 g/dl (32-36) L 12/21/16 07:30 RDW 15.0 % (11.5-14.0) H 12/21/16 07:30 Plt Count 136 K/mm3 (150-450) L 12/21/16 07:30 MPV 8.9 fl (6.0-9.5) 12/21/16 07:30 Immature Gran % (Auto) 0.20 % (0.001-0.429) 12/21/16 07:30 Immature Gran # (Auto) 0.01 K/mm3 (0.000-0.0310) 12/21/16 07:30 Neutrophils % 79.1 % (42-75.0) H 12/21/16 07:30 Lymphocytes % 10.2 % (20-51) L 12/21/16 07:30 Monocytes % 7.9 % (0.0-9) 12/21/16 07:30 Eosinophils % 2.4 % (0.0-3.0) 12/21/16 07:30 Basophils % 0.2 % (0.0-1.0) 12/21/16 07:30 Nucleated RBC % 0.0 k/mm3 (0-1) 12/21/16 07:30 Neutrophils # 4.2 K/mm3 (1.3-6.0) 12/21/16 07:30 Lymphocytes # 0.5 k/mm3 (1.5-3.5) L 12/21/16 07:30 Monocytes # 0.4 k/mm3 (0.0-1.0) 12/21/16 07:30 Eosinophils # 0.1 k/mm3 (0.0-0.7) 12/21/16 07:30 Absolute Basophils 0.0 k/mm3 (0.0-0.1) 12/21/16 07:30 Sodium 144 mmol/L (132-142) H 12/21/16 07:30 Plasma Sodium 144 mmol/L (130-142) H 12/21/16 07:30 Potassium 4.4 mmol/L (3.4-4.6) 12/21/16 07:30 Chloride 107 mmol/L (97-106) H 12/21/16 07:30 Carbon Dioxide 30.6 mmol/L (24-32.6) 12/21/16 07:30 Anion Gap 10.8 mmol/L (6.8-13.8) 12/21/16 07:30 BUN 17 mg/dL (3-23) 12/21/16 07:30 Creatinine 1.64 mg/dL (0.4-1.4) H 12/21/16 07:30 Est GFR (Non-Af Amer) 32 mL/min (60-130) L 12/21/16 07:30 BUN/Creatinine Ratio 10.4 (9.0-21.6) 12/21/16 07:30 Random Glucose 125 mg/dL (70-110) H 12/21/16 07:30 Calcium 9.2 mg/dL (7.9-10.9) 12/21/16 07:30 Calcium Adj for Albumin 9.4 mg/dL (8.4-10.2) 12/21/16 07:30 Total Bilirubin 0.4 mg/dL (0.0-1.1) 12/21/16 07:30 AST 23 U/L (0-48) 12/21/16 07:30 ALT 20 U/L (19-67) 12/21/16 07:30 Alkaline Phosphatase 87 U/L (50-170) 12/21/16 07:30 Troponin I Less than 0.017 ng/ml (0.00-0.10) 12/21/16 07:30 Total Protein 7.4 gm/dL (6.2-8.2) 12/21/16 07:30 Albumin 3.4 gm/dl (3.4-5.0) 12/21/16 07:30 Amylase 42 U/L (25-115) 12/21/16 07:30 Lipase 107 U/L (73-393) 12/21/16 07:30 Urine Color Pale yellow 12/21/16 07:25 Urine Appearance Cloudy 12/21/16 07:25 Urine pH 6.0 pH (5.0-7.0) 12/21/16 07:25 Ur Specific [place] 1.015 SP.GR. (1.005-1.010) 12/21/16 07:25 Urine Protein 15 mg/dL (NEGATIVE) H 12/21/16 07:25 Urine Glucose (UA) Negative mg/dL (NEGATIVE) 12/21/16 07:25 Urine Ketones Negative mg/dL (NEGATIVE) 12/21/16 07:25 Urine Blood 25 /ul (NEGATIVE) H 12/21/16 07:25 Urine Nitrate Negative (NEGATIVE) 12/21/16 07:25 Urine Bilirubin Negative mg/dl (NEGATIVE) 12/21/16 07:25 Prot Sulfosalicylic Acd 1+ mg/dL (0) 12/21/16 07:25 Urine Urobilinogen Normal EU/dl (NORMAL) 12/21/16 07:25 Ur Leukocyte Esterase 500 /ul (NEGATIVE) H 12/21/16 07:25 Urine RBC 5-10 /hpf (0-5) H 12/21/16 07:25 Urine WBC >50 /hpf (0-5) H 12/21/16 07:25 Ur Epithelial Cells 0-5 /hpf (0-5) 12/21/16 07:25 Urine Bacteria 3+ (NONE) H 12/21/16 07:25 Urine Culture Comments Culture to follow 12/21/16 07:25 Assessment/Plan - Assessment/Plan (1) UTI (urinary tract infection) Assessment: will give IV Cipro 400 mg BID pending C & S. Problem: Acute Qualifiers: Hematuria presence: with hematuria (2) Weakness generalized Assessment: no focal deficit. falls due to deconditioning on top of acute UTI. will have PT eval/treat. Problem: Acute (3) Diabetes mellitus type 2 in obese Problem: Acute (4) Fall Assessment: due to generalized weakness due to deconditioning on top of an acute UTI. Problem: Acute Qualifiers: Encounter type: initial encounter Qualified Code(s): W19.XXXA - Unspecified fall, initial encounter (5) CRF (chronic renal failure) Problem: Chronic Qualifiers: Chronic kidney disease stage: stage 3 (moderate) Qualified Code(s): N18.3 - Chronic kidney disease, stage 3 (moderate) (6) CVA (cerebral infarction) Problem: Chronic Qualifiers: Laterality of affected vessel: right (7) HTN (hypertension) Problem: Chronic Qualifiers: Hypertension type: essential hypertension Qualified Code(s): I10 - Essential (primary) hypertension
--- NOTE | 2016-12-21 14:33 | PN ---
Progess Note - Interim Narrative: 12/21/16 14:33 Patient checked out to me at shift change [address] Rock. Labs had returned. Patient tells me she fell at home and feels generalized weakness. She has UTI. She lives at home alone and does not feel she can go home. Dr Rock had reviewed x-ray but I also reviewed this, no clear acute process, pending official reading. I added on lipase, normal , troponin normal and EKG. EKG Sinus by my interpretation rate 80. Non-specific ST/T wave changes, no STEMI. I spoke with Dr Khanna, patient will be admitted obs. IV ABx given. She complained of epigastric pain for a day to me so I added Lipase, EKG and trop on prior to going to floor. Please see Dr Rock's note for full H&P. Dx: Generalized Weakness. Acute UTI. Falls.
[2016-12-21] MEDS ORDERED: SIMVASTATIN 20 MG TABLET PO SCH (21:00)
[2016-12-22] MEDS ORDERED: PANTOPRAZOLE SODIUM 40 MG TABLET.EC PO SCH (07:00)
[2016-12-22 07:44] VITALS: BP 151/74
--- NOTE | 2016-12-22 08:23 | DS ---
(1) UTI (urinary tract infection) Diagnosis(s): Gram Negative Bacilli UTI . Final report pending. continue with Cipro orally on discharge pending results. Problem: Acute Qualifiers: Hematuria presence: with hematuria (2) Weakness generalized Diagnosis(s): PT recommends skilled PT . will have home PT. Problem: Acute (3) Diabetes mellitus type 2 in obese Problem: Acute (4) Fall Diagnosis(s): will have home PT Problem: Acute Qualifiers: Encounter type: initial encounter Qualified Code(s): W19.XXXA - Unspecified fall, initial encounter (5) CRF (chronic renal failure) Problem: Chronic Qualifiers: Chronic kidney disease stage: stage 3 (moderate) Qualified Code(s): N18.3 - Chronic kidney disease, stage 3 (moderate) (6) CVA (cerebral infarction) Problem: Chronic Qualifiers: Laterality of affected vessel: right (7) HTN (hypertension) Problem: Chronic Qualifiers: Hypertension type: essential hypertension Qualified Code(s): I10 - Essential (primary) hypertension Description of Stay: Betzy Matute, is a 76-year-old white female, with previous medical history of coronary artery disease, CVA, diabetes mellitus type 2, chronic renal failure stage III, hypertension, who was brought to the emergency room on 12/21/2016 because of generalized weakness and falls. The patient for the last few days has been getting much more weaker and has had been having falls . She says that her knees would just give out on her. In the emergency room she was found to have a urinary tract infection for which she was started on oral antibiotics and sent home. She came back the following day still with generalized weakness and just felt that she just could not go home. She was then admitted for observation and started on IV antibiotics awaiting cultures. She was referred to physical therapy and was started on some IV fluids and IV Cipro. She does not want to go to a NH to get stronger before going home. Her UCS is growing Gram negative bacilli. PT recommended home PT. She already has Home health. She will be discharged on oral Cipro pending final report of culture and sensitivity. Procedures Performed: none Discharge Disposition: Home self care Disposition: Home self-care Condition: Good Discharge Activity: Activity as tolerated Discharge Diet: Low fat/chol Referrals: Juan C Khanna MD [Primary Care Provider] - Additional Patient Instructions (free text): Follow up with PCP in 4 weeks Prescriptions (Any new or edited meds): Ciprofloxacin HCl [Cipro] 500 mg PO BID #14 tab Complete Home Medications List: Complete Home Medication List: Aspirin [Aspirin Enteric Coated] 81 mg PO DAILY 09/09/13 Gabapentin 400 mg PO TID 09/09/13 Pramipexole Di-HCl [Mirapex] 0.125 mg PO HS 09/09/13 Pravastatin Sodium 40 mg PO DAILY 09/09/13 lamoTRIgine [Lamictal] 100 mg PO DAILY 09/09/13 Bisacodyl [Dulcolax] 5 mg PO DAILY PRN 01/05/14 Nitroglycerin 0.4 mg SL Q5MIN PRN 01/05/14 ALPRAZolam [Xanax] 0.25 mg PO BID PRN 05/11/14 Bupropion HCl [Wellbutrin Xl] 300 mg PO DAILY 05/11/14 Omeprazole [Prilosec] 40 mg PO DAILY 05/11/14 Tolterodine Tartrate [Detrol LA] 2 mg PO DAILY 12/22/15 Clopidogrel Bisulfate [Plavix] 75 mg PO DAILY 12/27/15 Cyanocobalamin [Vitamin B-12] 500 mcg PO DAILY 12/27/15 HYDROcodone/ACETAMINOPHEN [[place] 5-325 Tablet] 1 each PO QID PRN 12/27/15 Albuterol Sulfate 2.5 mg IH BID PRN 12/28/15 Cholecalciferol (Vitamin D3) [Vitamin D3] 3,000 unit PO DAILY 12/28/15 Nystatin [Mycostatin Cream] 30 gm TP BID 03/24/16 Ciprofloxacin HCl [Cipro] 500 mg PO BID #14 tab 12/22/16
[2016-12-22] MEDS ORDERED: TOLTERODINE TARTRATE 2 MG CAPSULE PO SCH (09:00)
[2016-12-22] MEDS ORDERED: lamoTRIgine 100 MG TABLET PO SCH (09:00)
[2016-12-22] MEDS ORDERED: CLOPIDOGREL BISULFATE 75 MG TABLET PO SCH (09:00)
[2016-12-22] MEDS ORDERED: ASPIRIN 81 MG TABLET.DR PO SCH (09:00)
[2016-12-22] MEDS ORDERED: CHOLECALCIFEROL 1,000 UNIT CAPSULE PO SCH (09:00)
[2016-12-22] MEDS: CIPROFLOXACIN LACTATE/D5W 400 MG/200 ML BAG IV SCH (10:15)
== END 2016-12-22 11:15 | disposition home health service (06) ==
LOC: ER 07:03 → MS 09:29
PROVIDERS: ADMIT Internal Medicine; ATTEND Internal Medicine
DX: N39.0 Urinary tract infection, site not specified (principal); B96.1 Klebsiella pneumoniae [K. pneumoniae] as the cause of diseases classified elsewhere; N18.3 Chronic kidney disease, stage 3 (moderate); I10 Essential (primary) hypertension; Z87.891 Personal history of nicotine dependence; I25.10 Atherosclerotic heart disease of native coronary artery without angina pectoris; E11.9 Type 2 diabetes mellitus without complications
CPT/HCPCS: 36415; 70450; 71010; 74020; 80053; 81001; 82150; 83690; 84484; 85025; 87077; 87086; 87186; 93005; 94660; 96365; 96366; 96367; 97110; 97161; 99283; G0378; G8978; G8979; G8980

== ENCOUNTER 2016-12-27 18:08 | Inpatient (IN) | payer MEDICARE, OTHER ==
[2016-12-27] MEDS ORDERED: NORMAL SALINE 500 ML IV ONE (18:22)
--- NOTE | 2016-12-27 18:30 | ERNOTE ---
Abdominal HPI - General Chief Complaint: Nausea/Vomiting Time Seen by Provider: 12/27/16 18:08 Source: patient Exam Limitations: no limitations - Immun/Allergies/Home Medications Immunizatons: IMMUNIZATION HX Immunizations Up to Date Yes History of Influenza Vaccine Yes Hx Pneumococcal Vaccination Yes Allergies/Adverse Reactions: Allergies chocolate flavor Allergy (Intermediate, Verified 12/21/16 07:10) Anaphylaxis ibuprofen Allergy (Mild, Verified 12/21/16 07:10) Nausea aspirin Adverse Reaction (Mild, Verified 12/21/16 07:10) Vomiting UPSET STOMACH Penicillins Adverse Reaction (Mild, Verified 12/21/16 07:10) Vomiting UPSET STOMACH Salicylates * [Salicylates] Adverse Reaction (Mild, Verified 12/21/16 07:10) Nausea Sulfa (Sulfonamide Antibiotics) [Sulfa(Sulfonamide Antibiotics)] Adverse Reaction (Mild, Verified 12/21/16 07:10) Vomiting UPSET STOMACH cabbage Allergy (Mild, Uncoded 12/21/16 07:10) Other Home Medications: HOME MEDICATIONS Aspirin [Aspirin Enteric Coated] 81 mg PO DAILY 09/09/13 [Last Taken Unknown] Gabapentin 400 mg PO TID 09/09/13 [Last Taken Unknown] Pramipexole Di-HCl [Mirapex] 0.125 mg PO HS 09/09/13 [Last Taken Unknown] Pravastatin Sodium 40 mg PO DAILY 09/09/13 [Last Taken Unknown] lamoTRIgine [Lamictal] 100 mg PO DAILY 09/09/13 [Last Taken Unknown] Bisacodyl [Dulcolax] 5 mg PO DAILY PRN 01/05/14 [Last Taken Unknown] Nitroglycerin 0.4 mg SL Q5MIN PRN 01/05/14 [Last Taken Unknown] ALPRAZolam [Xanax] 0.25 mg PO BID PRN 05/11/14 [Last Taken Unknown] Bupropion HCl [Wellbutrin Xl] 450 mg PO DAILY 05/11/14 [Last Taken Unknown] Omeprazole [Prilosec] 40 mg PO DAILY 05/11/14 [Last Taken Unknown] Tolterodine Tartrate [Detrol LA] 2 mg PO HS 12/22/15 [Last Taken Unknown] Clopidogrel Bisulfate [Plavix] 75 mg PO DAILY 12/27/15 [Last Taken Unknown] Cyanocobalamin [Vitamin B-12] 500 mcg PO DAILY 12/27/15 [Last Taken Unknown] HYDROcodone/ACETAMINOPHEN [[place] 5-325 Tablet] 1 each PO QID PRN 12/27/15 [Last Taken Unknown] Albuterol Sulfate 2.5 mg IH BID PRN 12/28/15 [Last Taken Unknown] Nystatin [Mycostatin Cream] 30 gm TP BID 03/24/16 [Last Taken Unknown] Ciprofloxacin HCl [Cipro] 500 mg PO BID #14 tab 12/22/16 [Last Taken Unknown] Bimatoprost [[place] 0.01% Opth Solution] 1 drop OP HS 12/27/16 [Last Taken Unknown] - History of Present Illness Narrative: Patient started yesterday with nausea and vomiting, that has been non stop per patient, she denies any diarrhea, last bowel movement was two days ago. When asked about pain she states that she hurts 'all over' denies localized pain in abdomen or chest. She was recently admitted for UTI and generalized weakness, discharged on cipro. Per available culture that grew Klebsiella it should be sensitive to that. She denies any dysuria but has had more frequency again. Date (Duration): 12/26/16 Time (Timing): 12:00 Timing: constant Quality: mild Prior Abdominal Problems: Present: none Prior Treatment: Present: recently seen, currently on antibiotics Review of Systems - Review of Systems Constitutional: Present: recent illness. Absent: fever, chills Respiratory: Absent: shortness of breath, cough Cardiology: Present: See HPI Gastrointestinal/Abdominal: Present: See HPI Genitourinary: Present: frequency Neurological: Absent: numbness - Patient's Past Medical History Patient History - Medical: Arthritis, Diabetes Type 2, Depression, GERD, Glaucoma, Headache, Obesity, Renal Failure, UTI'S Patient History - Cardiac/Respiratory: CVA/Stroke, Hypertension, Hyperlipidemia Patient History - Cancer: Ovarian Patient History - Surgical Procedures: Cholecystectomy, Colonoscopy, D & C, EGD , Hysterectomy, Total Hip Replacement, Total Knee Replacement, Other Patient History - Other: None - Family History Mother Family History - Medical: Family History - Cardiac/Respiratory: Coronary Heart Disease, CHF Father Family History - Medical: Family History - Cardiac/Respiratory: Coronary Heart Disease, CHF - Social History Living Situations: alone Abuse History: No History of abuse Psych History: No pertinent hx Have you smoked in the past 12 months: No Alcohol Use: none Drug Use: none - Immunizations Immunizations Up to Date: Yes Hx Pneumococcal Vaccination: Yes History of Influenza Vaccine: Yes Physical Exam - Physical Exam General Appearance: Present: wd/wn, alert, no apparent distress, anxious, obese Eye Exam: Normal inspection: bilateral, PERRL: bilateral Ears, Nose, Throat: Present: normal pharynx, dry mucous membranes Respiratory: Present: no respiratory distress, no accessory muscle use, lungs clear, decreased breath sounds Cardiovascular/Chest: Present: regular rate, rhythm, no murmur Gastrointestinal/Abdominal: Present: soft, tenderness - upper abdomen, abnormal bowel sounds - decrased, distended - slightly Extremity Exam: Present: no edema Neurological Exam: Present: alert, oriented, normal mood/affect Skin Exam: Present: normal color, warm/dry ED Progress - Vital Signs Patient's Vital Signs:: I have reviewed the patient's vital signs. Vital Signs: Vital Signs 12/27/16 18:10 Temperature 37.0 C Pulse Rate 84 Respiratory 14 Rate Blood Pressure 158/68 O2 Sat by Pulse 93 Oximetry - X-Ray X-Ray #1 X-Ray: abdomen - few air fluid levels Interpretation: Interp. by me - Progress/Reassessment Chief Complaint: Nausea/Vomiting Progress Note-Subjective: 12/27/16 19:30 discussed results with patient and advised admission, patient agreed 12/27/16 19:33 message to Kellen, will call back 12/27/16 20:30 discussed with Kellen, will call back 12/27/16 20:49 discussed with Kellen, concerns about not getting CT (patient had CT abdomen in February 2016), will call Dr Medina to discuss need for CT 12/27/16 21:[address] Medina, recommends admitting patient and getting repeat Xray in the morning, will get surgery consult in the morning, CT will not change treatment at this time. 12/27/16 21:15 discussed plan with Kellen Departure - Departure Clinical Impression: Weakness generalized Bowel obstruction Qualifiers: Intestinal obstruction type: unspecified Qualified Code(s): K56.60 - Unspecified intestinal obstruction Disposition: [facility] Condition: Fair Referrals: Juan C Khanna MD [Primary Care Provider] -
[2016-12-27 18:39] LABS: Hematocrit 39.3 % (37.0-47.0); Hemoglobin 11.9 gm/dL (12.5-16.0); Mean Cell Volume 90.6 fl (78-100); Mean Corpuscular Hemoglobin 27.4 pg (27-31); Mean Corpuscular Hgb Conc 30.3 g/dl (32-36); Mean Platelet Volume 9.2 fl (6.0-9.5); Neutrophil # 4.2 K/mm3 (1.3-6.0); Neutrophil % 74.7 % (42-75.0); Platelet Count 183 K/mm3 (150-450); Red Blood Count 4.34 M/mm3 (4.2-5.4); Red Cell Distribution Width 14.9 % (11.5-14.0); White Blood Count 5.6 K/mm3 (4.0-10.5)
[2016-12-27 18:50] LABS: Urine Bilirubin Negative (NEGATIVE); Urine Ketone Negative (NEGATIVE); Urine Nitrite Negative (NEGATIVE); Urine Protein 30 mg/dL (NEGATIVE); Urine Specific Gravity >=1.030 SP.GR. (1.005-1.010); Urine Urobilinogen Normal (NORMAL)
[2016-12-27 18:52] LABS: Albumin * 3.8 gm/dl (3.4-5.0); BUN/Creatinine Ratio 14.8 (9.0-21.6); Bilirubin, Total 0.5 mg/dL (0.0-1.1); Ca. Corrected For Albumin 9.1 mg/dL (8.4-10.2); Calcium * 9.3 mg/dL (7.9-10.9); Potassium 3.8 mmol/L (3.4-4.6); Total Protein 7.9 gm/dL (6.2-8.2)
--- OUTSIDE RECORDS SUMMARY | 2016-12-27 18:52 | XMS REPORT | Continuity of Care Document ---
:1940 Author Organization [facility] ([facility]) Address [address] [place] [address] Phone [phone] Care Team Providers Name Role Phone Juan C Khanna Primary Care Provider [phone] Source Comments This disclosure is being made pursuant to the Care Everywhere program, applicable federal and state laws, and may not contain all informaitonavailable regarding this patient.[facility] ([facility]) Active Allergies and Adverse Reactions Allergen Noted [...]
[2016-12-27 19:00] LABS: Urine Appearance Slightly Cloudy; Urine Bacteria 1+; Urine Blood 10 /ul (NEGATIVE); Urine Color Dark Yellow; Urine RBC 0-5 /hpf (0-5); Urine WBC None Seen /hpf (0-5)
[2016-12-27 19:01] LABS: Anion Gap 16.5 mmol/L (6.8-13.8); Carbon Dioxide 26.3 mmol/L (24-32.6)
[2016-12-27] MEDS ORDERED: ONDANSETRON HCL/PF 2 MG/ML VIAL IV ONE (21:05)
[2016-12-27] MEDS ORDERED: ONDANSETRON HCL/PF 2 MG/ML VIAL ONE (21:07)
--- OUTSIDE RECORDS SUMMARY | 2016-12-27 21:12 | XMS REPORT | Continuity of Care Document ---
:1940 Author Organization [facility] ([facility]) Address [address] [place] [address] Phone [phone] Care Team Providers Name Role Phone Juan C Khanna Primary Care Provider [phone] Source Comments This disclosure is being made pursuant to the Care Everywhere program, applicable federal and state laws, and may not contain all informaitonavailable regarding this patient.[facility] ([facility]) Active Allergies and Adverse Reactions Allergen [...]
[2016-12-27] MEDS ORDERED: ONDANSETRON HCL/PF 2 MG/ML VIAL IV PRN (21:26)
--- NOTE | 2016-12-27 21:39 | HP ---
Chief Complaint - Chief Complaint Date of Service: 12/27/16 Time of Service: 21:34 Chief Complaint: " Nausea, Vomiting". Source- Pt' reliable, ER provider report , Pt's EMR. History of Present Illness: Ms. Matute is a 76-yr-old [place] pt of Dr. Juan C Khanna with a PMH of: Athritis , Cholelithiasis, Chronic Renal Failure, CVA, Depression, DM II,GERD, Glaucoma, HTN, Hepatitis & Peripheral Neuropathy. Pt reports that she developed N/V on Monday and that has been going on till today. The last good meal she had was Monday's Lunch. She has been unable to keep any food or liquids down and therefore has not been able to eat anything for the last 2-3 days. She denies the associated symptoms of: fevers & chills, no Diarrhea no Abdominal pain & no bloody stools. She states that she was not getting any better and so she called the EMS who brought her to [facility]. She reports that the last vomiting occurred this morning and also had a BM yesterday.The Labwork at the ED was mostly unremarkable except for a BUN/CR of 27/1.32. However, the abdominal X-ray had findings concerning for Small Bowel Obstruction. Off note, pt was admitted to the [facility] in 03/24/16 for similar symptoms. An abdominal CT done at that time did show SBO. She was seen/followed by surgery, was managed conservatively with NG suctioning, and she improved. She has Past abdominal surgeries involving TAHBSO & Cholecystecomy. ERP spoke with the surgeon (Dr. Medina). The plan is to admit pt under observation and manage her symptoms with conservative treatment for now. The need for additional imaging tests will be determined if pt lacks any progress. n. - Patient's Past Medical History Patient History - Medical: Arthritis, Diabetes Type 2, Depression, GERD, Glaucoma, Headache, Obesity, Osteoarthritis, Renal Failure, UTI'S Patient History - Cardiac/Respiratory: CVA/Stroke, Hypertension, Hyperlipidemia Patient History - Cancer: Ovarian Patient History - Surgical Procedures: Cholecystectomy, Colonoscopy, D & C, EGD , Hysterectomy, Total Hip Replacement, Total Knee Replacement, Other Patient History - Other: None - Family History Mother Family History - Medical: Family History - Cardiac/Respiratory: Coronary Heart Disease, CHF Father Family History - Medical: Family History - Cardiac/Respiratory: Coronary Heart Disease, CHF - Social History Living Situations: alone Abuse History: No History of abuse Psych History: No pertinent hx Have you smoked in the past 12 months: No Alcohol Use: none Drug Use: none - Immunizations Immunizations Up to Date: Yes Hx Pneumococcal Vaccination: Yes History of Influenza Vaccine: Yes Review Of Systems (GEN) - Review of Systems Generalized/Overall Review: Absent: Weakness, Chills, Fever, Malaise, Diaphoresis EENTM: Absent: Eye Pain, Blurred Vision, Double Vision Respiratory: Absent: Cough, Shortness of Breath, Orthopnea Cardiac: Absent: Chest Pain, Edema, Palpitations, Syncope Abdominal: Present: Nausea, Vomiting. Absent: Abdominal Pain, Constipation Genitourinary: Absent: Burning, Itching, Frequency, Hesitancy Musculoskeletal: Absent: Joint Pain, Back Pain Neurological: Present: Depressed. Absent: Headache, Anxiety, Emotional Problems Skin: Absent: Dryness, Lesions, Lumps Endocrine: Absent: Intolerance to Cold, Intolerance to Heat, Increased Thirst Misc: All systems neg except as marked Immunizations: IMMUNIZATION HX Immunizations Up to Date Yes History of Influenza Vaccine Yes Hx Pneumococcal Vaccination Yes Allergies/Adverse Reactions: Allergies Allergy/AdvReac Type Severity Reaction Status Date / Time chocolate flavor Allergy Intermediate Anaphylaxis Verified 12/21/16 07:10 ibuprofen Allergy Mild Nausea Verified 12/21/16 07:10 aspirin AdvReac Mild Vomiting Verified 12/21/16 07:10 Penicillins AdvReac Mild Vomiting Verified 12/21/16 07:10 Salicylates * [Salicylates] AdvReac Mild Nausea Verified 12/21/16 07:10 Sulfa (Sulfonamide AdvReac Mild Vomiting Verified 12/21/16 07:10 Antibiotics) [Sulfa(Sulfonamide Antibiotics)] cabbage Allergy Mild Other Uncoded 12/21/16 07:10 Home Medications: HOME MEDICATIONS Aspirin [Aspirin Enteric Coated] 81 mg PO DAILY 09/09/13 [Last Taken Unknown] Gabapentin 400 mg PO TID 09/09/13 [Last Taken Unknown] Pramipexole Di-HCl [Mirapex] 0.125 mg PO HS 09/09/13 [Last Taken Unknown] Pravastatin Sodium 40 mg PO DAILY 09/09/13 [Last Taken Unknown] lamoTRIgine [Lamictal] 100 mg PO DAILY 09/09/13 [Last Taken Unknown] Bisacodyl [Dulcolax] 5 mg PO DAILY PRN 01/05/14 [Last Taken Unknown] Nitroglycerin 0.4 mg SL Q5MIN PRN 01/05/14 [Last Taken Unknown] ALPRAZolam [Xanax] 0.25 mg PO BID PRN 05/11/14 [Last Taken Unknown] Bupropion HCl [Wellbutrin Xl] 450 mg PO DAILY 05/11/14 [Last Taken Unknown] Omeprazole [Prilosec] 40 mg PO DAILY 05/11/14 [Last Taken Unknown] Tolterodine Tartrate [Detrol LA] 2 mg PO HS 12/22/15 [Last Taken Unknown] Clopidogrel Bisulfate [Plavix] 75 mg PO DAILY 12/27/15 [Last Taken Unknown] Cyanocobalamin [Vitamin B-12] 500 mcg PO DAILY 12/27/15 [Last Taken Unknown] HYDROcodone/ACETAMINOPHEN [[place] 5-325 Tablet] 1 each PO QID PRN 12/27/15 [Last Taken Unknown] Albuterol Sulfate 2.5 mg IH BID PRN 12/28/15 [Last Taken Unknown] Nystatin [Mycostatin Cream] 30 gm TP BID 03/24/16 [Last Taken Unknown] Silver Sulfadiazine [Silvadene] 1 appl TP BID 12/27/16 [Last Taken Unknown] Exam - Exam Vital Signs: Vital Signs - Last Taken Temp 37.5 C 12/27/16 21:11 Pulse 88 12/27/16 21:11 Resp 16 12/27/16 21:11 BP 168/90 12/27/16 21:11 Pulse Ox 93 12/27/16 21:11 Constitutional: Present: Alert, Oriented x3, No distress ENT Exam: Present: hearing grossly normal, dry mucous membranes Eye Exam: bilateral eye: normal inspection Neck: Present: non-tender, full range of motion, supple Back Exam: Present: normal inspection, no CVA tenderness Breasts: Present: Exam deferred Respiratory: Present: lungs clear, no respiratory distress, respiratory distress Cardiovascular/Chest: Present: normal peripheral pulses, regular rate, rhythm, no chest tenderness, no edema, no murmur Abdomen: Present: Normal bowel sounds, soft, nontender, nondistended /Rectal: Present: Exam deferred Extremity: Present: non-tender, normal inspection, no pedal edema, no calf tenderness Skin Exam: Present: warm/dry, no cyanosis Lymphatic: Present: no adenopathy Neurologic: Present: no motor/sensory deficits, oriented x 3 Appearance: Present: appropriate appearance, appropriate insight Eye contact: Present: cooperative, good eye contact, normal speech Thoughts: Present: normal thought pattern, no apparent hallucination Diagnostic Studies: Laboratory Results WBC 5.6 K/mm3 (4.0-10.5) 12/27/16 18:35 RBC 4.34 M/mm3 (4.2-5.4) 12/27/16 18:35 Hgb 11.9 gm/dL (12.5-16.0) L 12/27/16 18:35 Hct 39.3 % (37.0-47.0) 12/27/16 18:35 MCV 90.6 fl (78-100) 12/27/16 18:35 MCH 27.4 pg (27-31) 12/27/16 18:35 MCHC 30.3 g/dl (32-36) L 12/27/16 18:35 RDW 14.9 % (11.5-14.0) H 12/27/16 18:35 Plt Count 183 K/mm3 (150-450) 12/27/16 18:35 MPV 9.2 fl (6.0-9.5) 12/27/16 18:35 Immature Gran % (Auto) 0.20 % (0.001-0.429) 12/27/16 18:35 Immature Gran # (Auto) 0.01 K/mm3 (0.000-0.0310) 12/27/16 18:35 Neutrophils % 74.7 % (42-75.0) 12/27/16 18:35 Lymphocytes % 15.8 % (20-51) L 12/27/16 18:35 Monocytes % 7.6 % (0.0-9) 12/27/16 18:35 Eosinophils % 1.3 % (0.0-3.0) 12/27/16 18:35 Basophils % 0.4 % (0.0-1.0) 12/27/16 18:35 Nucleated RBC % 0.0 k/mm3 (0-1) 12/27/16 18:35 Neutrophils # 4.2 K/mm3 (1.3-6.0) 12/27/16 18:35 Lymphocytes # 0.9 k/mm3 (1.5-3.5) L 12/27/16 18:35 Monocytes # 0.4 k/mm3 (0.0-1.0) 12/27/16 18:35 Eosinophils # 0.1 k/mm3 (0.0-0.7) 12/27/16 18:35 Absolute Basophils 0.0 k/mm3 (0.0-0.1) 12/27/16 18:35 Sodium 143 mmol/L (132-142) H 12/27/16 18:35 Plasma Sodium 143 mmol/L (130-142) H 12/27/16 18:35 Potassium 3.8 mmol/L (3.4-4.6) 12/27/16 18:35 Chloride 104 mmol/L (97-106) 12/27/16 18:35 Carbon Dioxide 26.3 mmol/L (24-32.6) 12/27/16 18:35 Anion Gap 16.5 mmol/L (6.8-13.8) H 12/27/16 18:35 BUN 27 mg/dL (3-23) H D 12/27/16 18:35 Creatinine 1.82 mg/dL (0.4-1.4) H 12/27/16 18:35 Est GFR (Non-Af Amer) 29 mL/min (60-130) L 12/27/16 18:35 BUN/Creatinine Ratio 14.8 (9.0-21.6) 12/27/16 18:35 Random Glucose 127 mg/dL (70-110) H 12/27/16 18:35 Calcium 9.3 mg/dL (7.9-10.9) 12/27/16 18:35 Calcium Adj for Albumin 9.1 mg/dL (8.4-10.2) 12/27/16 18:35 Total Bilirubin 0.5 mg/dL (0.0-1.1) 12/27/16 18:35 AST 63 U/L (0-48) H 12/27/16 18:35 ALT 42 U/L (19-67) 12/27/16 18:35 Alkaline Phosphatase 90 U/L (50-170) 12/27/16 18:35 Total Protein 7.9 gm/dL (6.2-8.2) 12/27/16 18:35 Albumin 3.8 gm/dl (3.4-5.0) 12/27/16 18:35 Amylase 63 U/L (25-115) 12/27/16 18:35 Lipase 120 U/L (73-393) 12/27/16 18:35 Urine Color Dark yellow 12/27/16 18:45 Urine Appearance Slightly cloudy 12/27/16 18:45 Urine pH 6.0 pH (5.0-7.0) 12/27/16 18:45 Ur Specific [place] >=1.030 SP.GR. (1.005-1.010) 12/27/16 18:45 Urine Protein 30 mg/dL (NEGATIVE) H 12/27/16 18:45 Urine Glucose (UA) Negative mg/dL (NEGATIVE) 12/27/16 18:45 Urine Ketones Negative mg/dL (NEGATIVE) 12/27/16 18:45 Urine Blood 10 /ul (NEGATIVE) H 12/27/16 18:45 Urine Nitrate Negative (NEGATIVE) 12/27/16 18:45 Urine Bilirubin Negative mg/dl (NEGATIVE) 12/27/16 18:45 Prot Sulfosalicylic Acd Negative mg/dL (0) 12/27/16 18:45 Urine Urobilinogen Normal EU/dl (NORMAL) 12/27/16 18:45 Ur Leukocyte Esterase Negative /ul (NEGATIVE) 12/27/16 18:45 Urine RBC 0-5 /hpf (0-5) 12/27/16 18:45 Urine WBC None seen /hpf (0-5) 12/27/16 18:45 Ur Epithelial Cells Trace /hpf (0-5) 12/27/16 18:45 Urine Bacteria 1+ (NONE) H 12/27/16 18:45 Urine Culture Comments Culture to follow 12/27/16 18:45 Assessment/Plan - Assessment/Plan (1) Partial small bowel obstruction Assessment: Ms. Matute presented with N/V that had gone on for 2-3 days. She was last hospitalized in 03/25/16 due to SBO which responded well to conservative management with NG suctioning, antiemetics and NPO. Past Abdominal Surgeries involve: TAHBSO & Cholecystecomy. At the ED today, the Abdominal X-ray had findings concerning for SBO. Pt reported decreased oral/fluid intake. She had a bowel movement on 12/26 and last vomited during the morning hours of 12/27. The physical exam showed: no abdominal distention,no tenderness or rebound abdominal tenderness. No fevers, tachycardia or tachypnea. Her WBC is in NR. In agreement with the surgeon to manage non-operatively with: Keeping NPO, Antiemetics and Analgesics. No need for the NG tube now as she has not any vomiting since morning. Dr. Medina will follow pt and determine if there is need for additional imaging depending on the pt's progress. Problem: Acute (2) Acute on chronic renal failure Assessment: Likely pre renal due to poor oral intake. Hydrate with IVF, BMP in am. Problem: Acute (3) Diabetes mellitus type 2 in obese Assessment: Will add dextrose to IVF while NPO. Accucheck Q 6 hrs. Problem: Chronic (4) GERD (gastroesophageal reflux disease) Assessment: Cover with Protonix while NPO Problem: Chronic (5) CVA (cerebral vascular accident) Assessment: Stable- On Aspirin and Plavix. Place on remote telemetry monitoring. Problem: Chronic (6) Depression Problem: Chronic (7) Glaucoma Problem: Chronic
[2016-12-27] MEDS ORDERED: HYDROmorphone HCL 1 MG/ML DISP.SYRIN IV PRN (21:48)
[2016-12-27] MEDS ORDERED: POTASSIUM CHLORIDE 20 MEQ in DEXTROSE 5%-0.5 NORMAL SALINE 990 ML IV SCH (22:30)
[2016-12-27] MEDS: POTASSIUM CHLORIDE/D5-0.5NS 1,000 ML IV SCH (23:23)
[2016-12-27] MEDS: ONDANSETRON HCL/PF 2 MG/ML VIAL IV PRN (23:33)
[2016-12-27] MEDS ORDERED: NITROGLYCERIN 0.4 MG/TAB BTL SL PRN (23:37)
[2016-12-27] MEDS ORDERED: HYDROcodone/ACETAMINOPHEN 1 EACH TABLET PO PRN (23:37)
[2016-12-27] MEDS ORDERED: ALBUTEROL SULFATE 2.5 MG/3 ML VIAL.NEB IH PRN (23:37)
[2016-12-27] MEDS ORDERED: ALPRAZolam 0.25 MG TABLET PO PRN (23:37)
[2016-12-27] MEDS ORDERED: BISACODYL 5 MG TABLET.DR PO PRN (23:37)
[2016-12-28] MEDS: PRAMIPEXOLE DI-HCL 0.5 MG TABLET PO SCH ×2 (00:15→20:22)
[2016-12-28] MEDS: PANTOPRAZOLE SODIUM 40 MG in NORMAL SALINE 100 ML IV SCH ×2 (00:39→10:45)
[2016-12-28 05:24] LABS: Hematocrit 32.3 % (37.0-47.0); Hemoglobin 9.8 gm/dL (12.5-16.0); Mean Cell Volume 90.5 fl (78-100); Mean Corpuscular Hemoglobin 27.5 pg (27-31); Mean Corpuscular Hgb Conc 30.3 g/dl (32-36); Mean Platelet Volume 9.9 fl (6.0-9.5); Neutrophil # 4.7 K/mm3 (1.3-6.0); Platelet Count 157 K/mm3 (150-450); Red Blood Count 3.57 M/mm3 (4.2-5.4); Red Cell Distribution Width 14.7 % (11.5-14.0); White Blood Count 6.5 K/mm3 (4.0-10.5)
[2016-12-28 05:39] LABS: Anion Gap 13.4 mmol/L (6.8-13.8); BUN/Creatinine Ratio 15.8 (9.0-21.6); Calcium * 8.4 mg/dL (7.9-10.9); Carbon Dioxide 26.5 mmol/L (24-32.6); Estimated Creat Clear 28.4; Potassium 3.9 mmol/L (3.4-4.6)
--- NOTE | 2016-12-28 08:41 | PN ---
Subjective - Date and Time Seen Date: 12/28/16 Time: 08:28 Subjective Narrative: did well overnight. no abdominal pain this am. denies n/v. NPO currently. Carol mejía. Objective - Review of Systems Generalized/Overall Review: Reports: No Symptoms Reported EENTM: Reports: No Symptoms Reported Respiratory: Reports: No Symptoms Reported Cardiac: Reports: No Symptoms Reported Abdominal: Reports: No Symptoms Reported Genitourinary Symptoms: Reports: No Symptoms Reported Musculoskeletal Complaints: Reports: No Symptoms Reported Neurological: Reports: No Symptoms Reported Skin: Reports: No Symptoms Reported Endocrine: Reports: No Symptoms Reported Misc: All systems neg except as marked - Vitals Vitals: Last Vital Signs Temp 36.6 C 12/28/16 07:47 Pulse 73 12/28/16 07:47 Resp 20 12/28/16 07:47 BP 141/69 12/28/16 07:47 Pulse Ox 97 12/28/16 07:47 - Abnormal Lab Findings Abnormal Lab Findings: Abnormal Lab Results 12/28/16 12/28/16 Range/Units 05:20 05:20 RBC 3.57 L (4.2-5.4) M/mm3 Hgb 9.8 L (12.5-16.0) gm/dL Hct 32.3 L (37.0-47.0) % MCHC 30.3 L (32-36) g/dl RDW 14.7 H (11.5-14.0) % MPV 9.9 H (6.0-9.5) fl Lymphocytes % 18.2 L (20-51) % Lymphocytes # 1.2 L (1.5-3.5) k/mm3 Sodium 143 H (132-142) mmol/L Plasma Sodium 144 H (130-142) mmol/L Chloride 107 H (97-106) mmol/L BUN 25 H (3-23) mg/dL Creatinine 1.58 H (0.4-1.4) mg/dL Est GFR (Non-Af Amer) 34 L (60-130) mL/min Random Glucose 138 H (70-110) mg/dL - Exam Constitutional: Present: Alert, Oriented x3, Cooperative, No distress ENT Exam: Present: hearing grossly normal Neck: Present: full range of motion, supple Breasts: Present: Exam deferred Respiratory: Present: lungs clear, normal breath sounds Cardiovascular/Chest: Present: normal peripheral pulses, regular rate, rhythm Abdomen: Present: soft, nontender, nondistended /Rectal: Present: Exam deferred Extremity: Present: non-tender, no calf tenderness Skin Exam: Present: warm/dry, no cyanosis, pallor Assessment/Plan Plan Narrative: Abdominal pain - ileus vs partial SBO - patient is without pain this am, no n/v - patient story leads to possible recent constipation - likely ileus over partial SBO - repeat ab xrays this am. - will allow ice chips this am. - surgery consulting, awaiting additional recommendations. dehydration - secondary to poor oral intake - iv fluids infusing. Acute on chronic renal failure - secondary to poor oral intake due to n/v - iv fluids infusing - creatinine improving overnight with iv fluids Gerd - IV protonix bid currently ordered Anemia - hgb of 11.9 yesterday due to hemoconcentration secondary to dehydration from poor oral intake - chronic anemia hgb runs 9-11 over the past 2-3 years. Diabetes - blood sugar stable CVA - currently on aspirin and plavix depression - stable. - Problems/Diagnosis (1) Abdominal pain Problem: Acute Qualifiers: Abdominal location: unspecified location Qualified Code(s): R10.9 - Unspecified abdominal pain (2) Dehydration Problem: Acute (3) Acute on chronic renal failure Problem: Acute (4) CVA (cerebral vascular accident) Problem: Chronic Qualifiers: CVA mechanism: unspecified Qualified Code(s): I63.9 - Cerebral infarction, unspecified (5) Depression Problem: Chronic Qualifiers: Depression Type: unspecified Qualified Code(s): F32.9 - Major depressive disorder, single episode, unspecified (6) HTN (hypertension) Problem: Chronic Qualifiers: Hypertension type: essential hypertension Qualified Code(s): I10 - Essential (primary) hypertension (7) Anemia Problem: Chronic Qualifiers: Anemia type: iron deficiency (8) Diabetes mellitus type 2 in obese Problem: Chronic (9) GERD (gastroesophageal reflux disease) Problem: Chronic Qualifiers: Esophagitis presence: esophagitis presence not specified Qualified Code(s) : K21.9 - Gastro-esophageal reflux disease without esophagitis
[2016-12-28] MEDS ORDERED: GABAPENTIN 300 MG CAPSULE PO SCH (09:00)
[2016-12-28] MEDS ORDERED: NYSTATIN 30 APPL TUBE TP SCH (09:00)
[2016-12-28] MEDS ORDERED: SILVER SULFADIAZINE 25 APPL JAR TP SCH (09:00)
[2016-12-28] MEDS: CYANOCOBALAMIN 1,000 MCG TABLET PO SCH (10:08)
[2016-12-28] MEDS: lamoTRIgine 100 MG TABLET PO SCH (10:09)
[2016-12-28] MEDS: GABAPENTIN 400 MG CAPSULE PO SCH ×3 (10:09→17:33)
[2016-12-28] MEDS: buPROPion HCL 150 MG TAB.SR.24H PO SCH (10:09)
[2016-12-28] MEDS: CLOPIDOGREL BISULFATE 75 MG TABLET PO SCH (10:09)
[2016-12-28] MEDS: ASPIRIN 81 MG TABLET.DR PO SCH (10:10)
[2016-12-28] MEDS: SILVER SULFADIAZINE 50 APPL JAR TP SCH ×2 (10:10→20:22)
[2016-12-28] MEDS: NYSTATIN 30 APPL TUBE TP SCH ×2 (10:10→20:22)
[2016-12-28] MEDS: POTASSIUM CHLORIDE/D5-0.5NS 1,000 ML IV SCH ×2 (10:35→20:18)
[2016-12-28] MEDS ORDERED: BISACODYL 5 MG TABLET.DR PO ONE ×2 (12:00→18:30)
--- NOTE | 2016-12-28 15:14 | CONS ---
[facility] - General Date of Service: 12/27/16 - seen at approx 2300 Source: patient, RN/MD, RN notes reviewed, old records Exam Limitations: no limitations - History of Present Illness Initial Comments: She presented to the emergency room with complaint of vomiting everything she ate for 3 days. Her last solid food intake was a hamburger on Monday. She has been vomiting repeatedly since then. She does state she has passed some gas but has not moved her bowels. She has had some abdominal pain but no fever. Severity: mild Modifying Factors - (Worsens): Reports: eating Modifying Factors - (Improves): Reports: other - Not eating Associated Symptoms: loss of appetite, nausea, vomiting Allergies/Adverse Reactions: Allergies chocolate flavor Allergy (Intermediate, Verified 12/21/16 07:10) Anaphylaxis ibuprofen Allergy (Mild, Verified 12/21/16 07:10) Nausea aspirin Adverse Reaction (Mild, Verified 12/21/16 07:10) Vomiting UPSET STOMACH Penicillins Adverse Reaction (Mild, Verified 12/21/16 07:10) Vomiting UPSET STOMACH Salicylates * [Salicylates] Adverse Reaction (Mild, Verified 12/21/16 07:10) Nausea Sulfa (Sulfonamide Antibiotics) [Sulfa(Sulfonamide Antibiotics)] Adverse Reaction (Mild, Verified 12/21/16 07:10) Vomiting UPSET STOMACH cabbage Allergy (Mild, Uncoded 12/21/16 07:10) Other Home Medications: Home Medications Medication Instructions Recorded Last Taken Aspirin [Aspirin Enteric Coated] 81 mg PO DAILY 09/09/13 Unknown Gabapentin 400 mg PO TID 09/09/13 Unknown Pramipexole Di-HCl [Mirapex] 0.125 mg PO HS 09/09/13 Unknown Pravastatin Sodium 40 mg PO DAILY 09/09/13 Unknown lamoTRIgine [Lamictal] 100 mg PO DAILY 09/09/13 Unknown Bisacodyl [Dulcolax] 5 mg PO DAILY PRN 01/05/14 Unknown Nitroglycerin 0.4 mg SL Q5MIN PRN 01/05/14 Unknown ALPRAZolam [Xanax] 0.25 mg PO BID PRN 05/11/14 Unknown Bupropion HCl [Wellbutrin Xl] 450 mg PO DAILY 05/11/14 Unknown Omeprazole [Prilosec] 40 mg PO DAILY 05/11/14 Unknown Tolterodine Tartrate [Detrol LA] 2 mg PO HS 12/22/15 Unknown Clopidogrel Bisulfate [Plavix] 75 mg PO DAILY 12/27/15 Unknown Cyanocobalamin [Vitamin B-12] 500 mcg PO DAILY 12/27/15 Unknown HYDROcodone/ACETAMINOPHEN [[place] 1 each PO QID PRN 12/27/15 Unknown 5-325 Tablet] Albuterol Sulfate 2.5 mg IH BID PRN 12/28/15 Unknown Nystatin [Mycostatin Cream] 30 gm TP BID 03/24/16 Unknown Silver Sulfadiazine [Silvadene] 1 appl TP BID 12/27/16 Unknown - Patient's Past Medical History Patient History - Medical: Arthritis, Diabetes Type 2, Depression, GERD, Glaucoma, Headache, Obesity, Osteoarthritis, Renal Failure, UTI'S, Other - She was just hospitalized for treatment of UTI. She presented with similar symptoms in 2015. CT scan revealed dilated proximal small intestine with a transition point however this was obscured by the hardware from her hip replacements. She responded promptly to nasogastric decompression and began moving her bowels. Patient History - Cardiac/Respiratory: CVA/Stroke, Hypertension, Hyperlipidemia Patient History - Cancer: Ovarian Patient History - Surgical Procedures: Cholecystectomy, Colonoscopy, D & C, EGD , Hysterectomy, Total Hip Replacement, Total Knee Replacement, Other Patient History - Other: None LMP (females 10-50): Menopausal - Family History Mother Family History - Medical: Family History - Cardiac/Respiratory: Coronary Heart Disease, CHF Father Family History - Medical: Family History - Cardiac/Respiratory: Coronary Heart Disease, CHF - Social History Living Situations: alone Abuse History: No History of abuse Psych History: No pertinent hx Smoking Status: Former smoker Have you smoked in the past 12 months: No Alcohol Use: none Drug Use: none - Immunizations Immunizations Up to Date: Yes Hx Pneumococcal Vaccination: Yes History of Influenza Vaccine: Yes Procedures AFTER-CATAR DISCISSION (04/16/02) ANESTH INJECT-SPIN CANAL (07/16/08) APPLICATION OF SPLINT (12/05/08) AUTOLOGOUS BLOOD TRANSFUSION (12/12/00) CLOSURE SKIN & SUBCUTANEOUS NEC (02/01/07) COLONOSCOPY (10/09/08) D & C NEC (04/18/05) DPT ADMINISTRATION (11/06/10) ESOPHAGEAL DILATION (10/10/11) ESOPHAGOGASTRODUODENOSCOPY [EGD] W/CLOSED BIOPSY (05/11/12) HYSTEROSCOPY (04/18/05) INJECT STEROID (07/16/08) LARYGNOSCOPY AND OTH TRACHEOSCOPY (09/13/07) OP RED-INT FIX TIB/FIBUL (02/21/04) OTH REMOVE BOTH OVARIES/TUBES (05/12/05) OTHER ENDOSCOPY OF SM INTEST (04/26/14) SIMP EXC LYMPH STRUC NEC (05/12/05) SPINAL CANAL INJECT NEC (07/16/08) TOTAL ABD HYSTERECTOMY (05/12/05) TOTAL HIP REPLACEMENT (10/13/06) Medications - Medications Current Medications: Current Medications Acetaminophen/Hydrocodone Bitart ([place] 5-325) 1 each PO QID PRN PRN Reason: left knee pain Stop: 01/26/17 23:38 Last Admin: 12/28/16 14:05 Dose: 1 each Aspirin (Aspirin Enteric Coated) 81 mg PO DAILY MEGAN Stop: 01/27/17 09:01 Last Admin: 12/28/16 10:10 Dose: 81 mg Bupropion HCl (Wellbutrin Xl) 450 mg PO DAILY MEGAN Stop: 01/27/17 09:01 Last Admin: 12/28/16 10:09 Dose: 450 mg Clopidogrel Bisulfate (Plavix) 75 mg PO DAILY MEGAN Stop: 01/27/17 09:01 Last Admin: 12/28/16 10:09 Dose: 75 mg Cyanocobalamin (Vitamin B-12) 500 mcg PO DAILY MEGAN Stop: 01/27/17 09:01 Last Admin: 12/28/16 10:08 Dose: 500 mcg Gabapentin (Neurontin) 400 mg PO TID MEGAN Stop: 01/27/17 09:01 Last Admin: 12/28/16 10:09 Dose: 400 mg Potassium Chloride/Dextrose/Sod Cl (Kcl 20 Meq/D5 1/2ns) 1,000 mls @ 100 mls/ hr IV .Q10H MEGAN Stop: 01/26/17 23:16 Last Admin: 12/28/16 10:35 Dose: 100 mls/hr Lamotrigine (Lamictal) 100 mg PO DAILY MEGAN Stop: 01/27/17 09:01 Last Admin: 12/28/16 10:09 Dose: 100 mg Nystatin (Mycostatin Cream) 1 appl TP BID MEGAN Stop: 01/27/17 09:01 Last Admin: 12/28/16 10:10 Dose: 1 appl Ondansetron HCl (Zofran) 4 mg IV Q4H PRN PRN Reason: Nausea Stop: 01/26/17 21:51 Last Admin: 12/27/16 23:33 Dose: 4 mg Pramipexole Dihydrochloride (Mirapex) 0.125 mg PO HS MEGAN Stop: 01/26/17 23:46 Last Admin: 12/28/16 00:15 Dose: Not Given Silver Sulfadiazine (Silvadene) 1 appl TP BID MEGAN Stop: 01/27/17 09:01 Last Admin: 12/28/16 10:10 Dose: 1 appl Review of Systems - Review of Systems Generalized/Overall Review: Present: Weakness. Absent: Chills, Fever EENTM: Present: Other - Dry mouth Respiratory: Absent: Cough, Shortness of Breath Cardiac: Absent: Chest Pain Abdominal: Present: Nausea, Vomiting, Constipation Genitourinary: Present: Frequency Musculoskeletal: Present: No Symptoms Reported Neurological: Present: No Symptoms Reported Skin: Present: Dryness Physical Examination - Exam Vital Signs: Vital Signs - Last Taken Temp 35.5 12/27/16 2130 Pulse 90 12/27/16 2130 Resp 16 12/27/16 2130 BP 138/68 12/27/16 2130 Pulse Ox 95 12/27/16 2130 O2 Oxygen Delivery Method Room Air Constitutional: Present: Alert, Oriented x3, Cooperative, No distress, Overweight ENT Exam: Present: normal ENT inspection, other - Edentulous, dry lips and tongue Eye Exam: bilateral eye: normal inspection Neck: Present: normal inspection Breasts: Present: Exam deferred Respiratory: Present: no respiratory distress Cardiovascular/Chest: Present: regular rate, rhythm Abdomen: Present: soft, obese, hernia - Nonreducible fat-containing umbilical hernia, nontender, hypoactive. Absent: guarding, rigidity, distended /Rectal: Present: Exam deferred Extremity: Present: normal inspection Skin Exam: Present: warm/dry, pallor Neurologic: Present: inspector machine cut glass II-XII nml as tested Appearance: Present: disheveled Eye contact: Present: cooperative, good eye contact, normal speech Thoughts: Present: normal thought pattern - Results and Findings: Lab/Microbiology results last 24 hrs: Abnormal/Pending Laboratory Last 24 HRS 12/28/16 12/28/16 05:20 05:20 RBC 3.57 L Hgb 9.8 L Hct 32.3 L MCHC 30.3 L RDW 14.7 H MPV 9.9 H Lymphocytes % 18.2 L Lymphocytes # 1.2 L Sodium 143 H Plasma Sodium 144 H Chloride 107 H BUN 25 H Creatinine 1.58 H Est GFR (Non-Af Amer) 34 L Random Glucose 138 H - Assessments/Findings (1) Partial small bowel obstruction Diagnosis(s): Whether this represents ileus or partial small bowel obstruction is unclear. She has not vomited for several hours except for a small amount of bilious material, and she reports she passed some gas. She has no peritoneal signs. Repeat CT scan is unlikely to add additional information as the hardware in her hips degrades the image significantly in the area of interest. Recommendation: She may have ice chips and required by mouth medication. IV hydration. Serial exams with repeat abdomen x-ray in the a.m. The case was discussed with Dr. Lundberg and Nhung Xavier NP Problem: Acute
--- NOTE | 2016-12-28 15:17 | PN ---
Dictated Progress Note - Date and Time Seen: Date: 12/28/16 Time: 15:15 - Progress Note Narrative: Vital Signs - Last Taken Temp 37.4 C 12/28/16 13:27 Pulse 78 12/28/16 13:27 Resp 18 12/28/16 13:27 BP 128/63 12/28/16 13:27 Pulse Ox 98 12/28/16 13:27 Abnormal/Pending Laboratory Last 24 HRS 12/28/16 12/28/16 05:20 05:20 RBC 3.57 L Hgb 9.8 L Hct 32.3 L MCHC 30.3 L RDW 14.7 H MPV 9.9 H Lymphocytes % 18.2 L Lymphocytes # 1.2 L Sodium 143 H Plasma Sodium 144 H Chloride 107 H BUN 25 H Creatinine 1.58 H Est GFR (Non-Af Amer) 34 L Random Glucose 138 H Her vital signs have remained normal. She has not vomited again and tolerated some clear liquids. Her white blood cell count remains normal. Her hemoglobin has decreased most likely from hydration. She currently denies abdominal pain and her abdomen is nontender. She has passed more gas, and although her abdomen x-ray this morning still shows some dilated small bowel there is gas in the colon through to the rectum. Recommend: Additional dose of Dulcolax. Advance diet as tolerated.
[2016-12-28] MEDS: TOLTERODINE TARTRATE 2 MG CAPSULE PO SCH (20:21)
[2016-12-28] MEDS: SIMVASTATIN 20 MG TABLET PO SCH (20:22)
[2016-12-28] MEDS: PANTOPRAZOLE SODIUM 40 MG TABLET.EC PO SCH (20:22)
[2016-12-28] MEDS: ONDANSETRON HCL/PF 2 MG/ML VIAL IV PRN (23:03)
[2016-12-29] MEDS: PANTOPRAZOLE SODIUM 40 MG TABLET.EC PO SCH ×2 (06:55→21:07)
[2016-12-29] MEDS: lamoTRIgine 100 MG TABLET PO SCH (08:55)
[2016-12-29] MEDS: CLOPIDOGREL BISULFATE 75 MG TABLET PO SCH (08:55)
[2016-12-29] MEDS: CYANOCOBALAMIN 1,000 MCG TABLET PO SCH (08:55)
[2016-12-29] MEDS: ASPIRIN 81 MG TABLET.DR PO SCH (08:55)
[2016-12-29] MEDS: buPROPion HCL 150 MG TAB.SR.24H PO SCH (08:55)
[2016-12-29] MEDS: GABAPENTIN 400 MG CAPSULE PO SCH ×3 (08:55→16:41)
[2016-12-29] MEDS: SILVER SULFADIAZINE 50 APPL JAR TP SCH ×2 (08:56→21:08)
[2016-12-29] MEDS ORDERED: ACETAMINOPHEN 325 MG TABLET PO PRN (09:03)
[2016-12-29] MEDS ORDERED: NORMAL SALINE 500 ML IV ONE (10:30)
--- NOTE | 2016-12-29 10:52 | PN ---
Subjective - Date and Time Seen Date: 12/29/16 Time: 10:40 Subjective Narrative: tried eating crackers last night and vomited. c/o mild abdominal pain this am with nausea. Dr encarnacion updated. up walking in halls last night. Objective - Review of Systems Generalized/Overall Review: Reports: Weakness, Fatigue. Denies: Chills, Fever EENTM: Reports: No Symptoms Reported Respiratory: Reports: No Symptoms Reported Cardiac: Reports: No Symptoms Reported Abdominal: Reports: Nausea, Vomiting, Abdominal Pain, Diarrhea. Denies: Hematemesis, Constipation, Melena, Bright blood from rectum Genitourinary Symptoms: Reports: No Symptoms Reported Musculoskeletal Complaints: Denies: No Symptoms Reported Neurological: Reports: Headache, Weakness Skin: Reports: No Symptoms Reported Endocrine: Reports: No Symptoms Reported Misc: All systems neg except as marked - Vitals Vitals: Last Vital Signs Temp 36.7 C 12/29/16 10:28 Pulse 80 12/29/16 10:28 Resp 18 12/29/16 10:28 BP 147/78 12/29/16 10:28 Pulse Ox 97 12/29/16 10:28 - Exam Constitutional: Present: Alert, Oriented x3, Cooperative ENT Exam: Present: hearing grossly normal Neck: Present: full range of motion, supple Breasts: Present: Exam deferred Respiratory: Present: lungs clear, normal breath sounds Cardiovascular/Chest: Present: normal peripheral pulses, regular rate, rhythm Abdomen: Present: Normal bowel sounds, soft, tender - LUQ /Rectal: Present: Exam deferred Extremity: Present: non-tender, normal inspection Skin Exam: Present: normal color, warm/dry, no cyanosis Assessment/Plan Plan Narrative: Abdominal pain - unknown etiology, ?gastritis - patient had large BM yesterday so ileus should have resolved - today has LUQ pain with nausea, vomiting last night - Dr Encarnacion reads ab xray this am as no obstruction with dilated small bowel loops - Dr Encarnacion recommends CT of abdomen / pelvis with contrast, appreciate his help. - final urine culture negative dehydration - improving but oral intake poor - iv fluids to continue today Acute on chronic renal failure - secondary to poor oral intake due to n/v - iv fluids to continue today - recheck labs this am Gerd - oral protinix, change to daily per dr encarnacion recommendations Anemia - hgb of 11.9 due to hemoconcentration secondary to dehydration from poor oral intake - chronic anemia hgb runs 9-11 over the past 2-3 years. - recheck cbc today Diabetes - blood sugar stable CVA - currently on aspirin and plavix depression - stable. await results of ct ab/pelvis for further recommendations. - Problems/Diagnosis (1) Abdominal pain Problem: Acute Qualifiers: Abdominal location: unspecified location Qualified Code(s): R10.9 - Unspecified abdominal pain (2) Dehydration Problem: Acute (3) Acute on chronic renal failure Problem: Acute (4) CVA (cerebral vascular accident) Problem: Chronic Qualifiers: CVA mechanism: unspecified Qualified Code(s): I63.9 - Cerebral infarction, unspecified (5) Depression Problem: Chronic Qualifiers: Depression Type: unspecified Qualified Code(s): F32.9 - Major depressive disorder, single episode, unspecified (6) HTN (hypertension) Problem: Chronic Qualifiers: Hypertension type: essential hypertension Qualified Code(s): I10 - Essential (primary) hypertension (7) Anemia Problem: Chronic Qualifiers: Anemia type: iron deficiency (8) Diabetes mellitus type 2 in obese Problem: Chronic (9) GERD (gastroesophageal reflux disease) Problem: Chronic Qualifiers: Esophagitis presence: esophagitis presence not specified Qualified Code(s) : K21.9 - Gastro-esophageal reflux disease without esophagitis
[2016-12-29] MEDS: NYSTATIN 30 APPL TUBE TP SCH ×2 (10:55→21:08)
[2016-12-29 11:03] LABS: Hematocrit 37.5 % (37.0-47.0); Hemoglobin 11.3 gm/dL (12.5-16.0); Mean Cell Volume 90.4 fl (78-100); Mean Corpuscular Hemoglobin 27.2 pg (27-31); Mean Corpuscular Hgb Conc 30.1 g/dl (32-36); Mean Platelet Volume 9.3 fl (6.0-9.5); Neutrophil # 4.9 K/mm3 (1.3-6.0); Neutrophil % 79.8 % (42-75.0); Platelet Count 165 K/mm3 (150-450); Red Blood Count 4.15 M/mm3 (4.2-5.4); Red Cell Distribution Width 14.7 % (11.5-14.0); White Blood Count 6.1 K/mm3 (4.0-10.5)
[2016-12-29 11:14] LABS: Albumin * 3.3 gm/dl (3.4-5.0); Anion Gap 13.7 mmol/L (6.8-13.8); BUN/Creatinine Ratio 13.5 (9.0-21.6); Bilirubin, Total 0.3 mg/dL (0.0-1.1); Ca. Corrected For Albumin 9.2 mg/dL (8.4-10.2); Carbon Dioxide 26.9 mmol/L (24-32.6); Potassium 3.6 mmol/L (3.4-4.6)
[2016-12-29] MEDS ORDERED: DIATRIZOATE MEGLUMINE, SODIUM 30 ML BTL PO ONE ×2 (11:46→13:19)
[2016-12-29] MEDS: NORMAL SALINE 1,000 ML IV PRN ×2 (12:07→16:40)
[2016-12-29] MEDS: PRAMIPEXOLE DI-HCL 0.5 MG TABLET PO SCH (21:07)
[2016-12-29] MEDS: TOLTERODINE TARTRATE 2 MG CAPSULE PO SCH (21:07)
[2016-12-29] MEDS: SIMVASTATIN 20 MG TABLET PO SCH (21:08)
[2016-12-30] MEDS: NORMAL SALINE 1,000 ML IV PRN (00:47)
[2016-12-30 05:24] LABS: Hemoglobin 9.7 gm/dL (12.5-16.0); Mean Cell Volume 91.2 fl (78-100); Mean Corpuscular Hemoglobin 27.6 pg (27-31); Mean Corpuscular Hgb Conc 30.3 g/dl (32-36); Neutrophil # 4.7 K/mm3 (1.3-6.0); Neutrophil % 76.7 % (42-75.0); Platelet Count 146 K/mm3 (150-450); Red Blood Count 3.51 M/mm3 (4.2-5.4); Red Cell Distribution Width 14.9 % (11.5-14.0); White Blood Count 6.1 K/mm3 (4.0-10.5)
[2016-12-30 05:32] LABS: Anion Gap 11.7 mmol/L (6.8-13.8); BUN/Creatinine Ratio 11.5 (9.0-21.6); Calcium * 8.4 mg/dL (7.9-10.9); Carbon Dioxide 26.4 mmol/L (24-32.6); Estimated Creat Clear 28.7; Potassium 3.1 mmol/L (3.4-4.6)
[2016-12-30] MEDS ORDERED: HYDROmorphone HCL 1 MG/ML DISP.SYRIN IV PRN (06:21)
[2016-12-30] MEDS: POTASSIUM CHLORIDE 20 MEQ in DEXTROSE 5%-0.5 NORMAL SALINE 990 ML IV SCH ×2 (07:28→20:15)
[2016-12-30] MEDS ORDERED: POTASSIUM CHLORIDE 100 ML IV ONE (07:30)
--- NOTE | 2016-12-30 08:21 | PN ---
Subjective - Date and Time Seen Date: 12/30/16 Time: 08:11 Subjective Narrative: Patient feeling better. Had BM x 1 last night. NGT -800 ml/ FB- + 1100 ml. Objective - Review of Systems Generalized/Overall Review: Reports: Weakness. Denies: Chills, Fever EENTM: Reports: No Symptoms Reported Respiratory: Denies: Cough, Shortness of Breath Cardiac: Denies: Chest Pain, Palpitations Abdominal: Reports: Abdominal Pain - improved. Denies: Nausea, Vomiting Genitourinary Symptoms: Denies: Urgency, Frequency Musculoskeletal Complaints: Reports: Joint Pain - Vitals Vitals: Last Vital Signs Temp 36.8 C 12/30/16 06:53 Pulse 77 12/30/16 06:53 Resp 20 12/30/16 06:53 BP 181/92 12/30/16 06:53 Pulse Ox 94 12/30/16 06:53 - Abnormal Lab Findings Abnormal Lab Findings: Abnormal Lab Results 12/29/16 12/29/16 12/29/16 Range/Units 10:46 10:46 19:06 RBC 4.15 L (4.2-5.4) M/mm3 Hgb 11.3 L (12.5-16.0) gm/dL Hct (37.0-47.0) % MCHC 30.1 L (32-36) g/dl RDW 14.7 H (11.5-14.0) % Plt Count (150-450) K/mm3 MPV (6.0-9.5) fl Neutrophils % 79.8 H (42-75.0) % Lymphocytes % 11.3 L (20-51) % Monocytes % (0.0-9) % Lymphocytes # 0.7 L (1.5-3.5) k/mm3 Sodium (132-142) mmol/L Plasma Sodium (130-142) mmol/L Potassium (3.4-4.6) mmol/L Chloride (97-106) mmol/L Creatinine 1.56 H (0.4-1.4) mg/dL Est GFR (Non-Af Amer) 34 L (60-130) mL/min Random Glucose 122 H (70-110) mg/dL Albumin 3.3 L (3.4-5.0) gm/dl Gastric Occult Blood Positive H 12/30/16 12/30/16 Range/Units 05:04 05:04 RBC 3.51 L (4.2-5.4) M/mm3 Hgb 9.7 L (12.5-16.0) gm/dL Hct 32.0 L (37.0-47.0) % MCHC 30.3 L (32-36) g/dl RDW 14.9 H (11.5-14.0) % Plt Count 146 L (150-450) K/mm3 MPV 10.0 H (6.0-9.5) fl Neutrophils % 76.7 H (42-75.0) % Lymphocytes % 11.1 L (20-51) % Monocytes % 9.1 H (0.0-9) % Lymphocytes # 0.7 L (1.5-3.5) k/mm3 Sodium 144 H (132-142) mmol/L Plasma Sodium 144 H (130-142) mmol/L Potassium 3.1 L (3.4-4.6) mmol/L Chloride 109 H (97-106) mmol/L Creatinine 1.56 H (0.4-1.4) mg/dL Est GFR (Non-Af Amer) 34 L (60-130) mL/min Random Glucose (70-110) mg/dL Albumin (3.4-5.0) gm/dl Gastric Occult Blood - Exam Constitutional: Present: Alert, Oriented x3, Cooperative ENT Exam: Present: hearing grossly normal Neck: Present: supple Breasts: Present: Exam deferred Respiratory: Present: decreased breath sounds, No rales, No wheezing Cardiovascular/Chest: Present: regular rate, rhythm, no JVD, no murmur Abdomen: Present: Normal bowel sounds, soft, nontender, nondistended Extremity: Present: no pedal edema, no calf tenderness Assessment/Plan - Problems/Diagnosis (1) Partial small bowel obstruction Problem: Acute Narrative: Could not tolerate gastroview, started N/V . she is feeling better today and wants to start eating. will start clear fluids and clamped her NGT. ADDENDUM: AXR showing resolved SBO. (2) Abdominal pain Problem: Acute Qualifiers: Abdominal location: unspecified location Qualified Code(s): R10.9 - Unspecified abdominal pain Narrative: improved (3) Acute on chronic renal failure Problem: Acute Narrative: improved (4) HTN (hypertension) Problem: Chronic Qualifiers: Hypertension type: essential hypertension Qualified Code(s): I10 - Essential (primary) hypertension (5) CVA (cerebral infarction) Problem: Chronic Qualifiers: Laterality of affected vessel: right (6) Weakness generalized Problem: Acute
--- NOTE | 2016-12-30 08:28 | PN ---
Dictated Progress Note - Date and Time Seen: Date: 12/30/16 Time: 08:00 - Progress Note Narrative: Vital Signs - Last Taken Temp 36.8 C 12/30/16 06:53 Pulse 77 12/30/16 06:53 Resp 20 12/30/16 06:53 BP 181/92 12/30/16 06:53 Pulse Ox 94 12/30/16 06:53 Abnormal/Pending Laboratory Last 24 HRS 12/30/16 12/30/16 12/29/16 05:04 05:04 19:06 RBC 3.51 L Hgb 9.7 L Hct 32.0 L MCHC 30.3 L RDW 14.9 H Plt Count 146 L MPV 10.0 H Neutrophils % 76.7 H Lymphocytes % 11.1 L Monocytes % 9.1 H Lymphocytes # 0.7 L Sodium 144 H Plasma Sodium 144 H Potassium 3.1 L Chloride 109 H Creatinine 1.56 H Est GFR (Non-Af Amer) 34 L Random Glucose Albumin Gastric Occult Blood Positive H 12/29/16 12/29/16 10:46 10:46 RBC 4.15 L Hgb 11.3 L Hct MCHC 30.1 L RDW 14.7 H Plt Count MPV Neutrophils % 79.8 H Lymphocytes % 11.3 L Monocytes % Lymphocytes # 0.7 L Sodium Plasma Sodium Potassium Chloride Creatinine 1.56 H Est GFR (Non-Af Amer) 34 L Random Glucose 122 H Albumin 3.3 L Gastric Occult Blood She dies not like th NG tube and did not sleep well. Had another stool/gas. Significant amount out of NG initially, but now bilious. Abdominal xray shows marked improvement in gas pattern with lots of gas in colon and less in small bowel IMPRESSION : The partial SBO is probably from adhesions (not hernia) and is improved RECOMMEND: Clamp NG and allow clear liquids.
[2016-12-30 08:42] LABS: Albumin * 2.9 gm/dl (3.4-5.0); Bilirubin Direct 0.1 mg/dL (0.0-0.3); Bilirubin, Total 0.4 mg/dL (0.0-1.1); Bilirubin,Indirect 0.3 mg/dL (0.1-0.7)
[2016-12-30] MEDS: PANTOPRAZOLE SODIUM 40 MG TABLET.EC PO SCH ×2 (11:53→20:16)
[2016-12-30] MEDS: ASPIRIN 81 MG TABLET.DR PO SCH (11:54)
[2016-12-30] MEDS: lamoTRIgine 100 MG TABLET PO SCH (11:54)
[2016-12-30] MEDS: CLOPIDOGREL BISULFATE 75 MG TABLET PO SCH (11:55)
[2016-12-30] MEDS: GABAPENTIN 400 MG CAPSULE PO SCH ×3 (11:55→16:50)
[2016-12-30] MEDS: CYANOCOBALAMIN 1,000 MCG TABLET PO SCH (11:55)
[2016-12-30] MEDS: buPROPion HCL 150 MG TAB.SR.24H PO SCH (11:56)
[2016-12-30] MEDS: ENOXAPARIN SODIUM 40 MG/0.4 ML SYRG SC SCH (11:56)
[2016-12-30] MEDS: NYSTATIN 30 APPL TUBE TP SCH ×2 (11:57→20:16)
[2016-12-30] MEDS: SILVER SULFADIAZINE 50 APPL JAR TP SCH ×2 (11:57→20:16)
[2016-12-30] MEDS: TOLTERODINE TARTRATE 2 MG CAPSULE PO SCH (20:16)
[2016-12-30] MEDS: SIMVASTATIN 20 MG TABLET PO SCH (20:16)
[2016-12-30] MEDS: PRAMIPEXOLE DI-HCL 0.5 MG TABLET PO SCH (20:16)
[2016-12-31] MEDS: POTASSIUM CHLORIDE 20 MEQ in DEXTROSE 5%-0.5 NORMAL SALINE 990 ML IV SCH (06:23)
[2016-12-31] MEDS: PANTOPRAZOLE SODIUM 40 MG TABLET.EC PO SCH (06:23)
[2016-12-31 08:37] LABS: Hematocrit 35.3 % (37.0-47.0); Hemoglobin 10.7 gm/dL (12.5-16.0); Mean Cell Volume 90.7 fl (78-100); Mean Corpuscular Hemoglobin 27.5 pg (27-31); Mean Corpuscular Hgb Conc 30.3 g/dl (32-36); Neutrophil # 3.7 K/mm3 (1.3-6.0); Neutrophil % 62.2 % (42-75.0); Platelet Count 165 K/mm3 (150-450); Red Blood Count 3.89 M/mm3 (4.2-5.4); Red Cell Distribution Width 15.1 % (11.5-14.0); White Blood Count 5.9 K/mm3 (4.0-10.5)
[2016-12-31 08:43] LABS: Anion Gap 13.3 mmol/L (6.8-13.8); BUN/Creatinine Ratio 8.8 (9.0-21.6); Calcium * 8.9 mg/dL (7.9-10.9); Carbon Dioxide 26.3 mmol/L (24-32.6); Estimated Creat Clear 30.3; Potassium 3.6 mmol/L (3.4-4.6)
--- NOTE | 2016-12-31 08:55 | DS ---
(1) Partial small bowel obstruction Diagnosis(s): resolved. tolerating mechanical soft diet. Problem: Acute (2) Abdominal pain Diagnosis(s): resolved Problem: Acute Qualifiers: Abdominal location: unspecified location Qualified Code(s): R10.9 - Unspecified abdominal pain (3) Acute on chronic renal failure Diagnosis(s): acute resolved. CRF Stage III GFR 31. Problem: Acute (4) HTN (hypertension) Problem: Chronic Qualifiers: Hypertension type: essential hypertension Qualified Code(s): I10 - Essential (primary) hypertension (5) CVA (cerebral infarction) Problem: Chronic Qualifiers: Laterality of affected vessel: right (6) Weakness generalized Problem: Acute Description of Stay: Matthew Matute is a 76-yr-old WF, with a PMH of: Athritis, Cholelithiasis, Chronic Renal Failure, CVA, Depression, DM II,GERD, Glaucoma,HTN, Hepatitis & Peripheral Neuropathy who was admitted on 12/27/2016 for N/V/abdominal pain. Pt reported that she developed N/V 4 days [employer] and that had been going on till the day of admission. The last good meal she had was Monday's Lunch. She has been unable to keep any food or liquids down and therefore had not been able to eat anything for the last 2-3 days. She denied the associated symptoms of: fevers & chills, no Diarrhea no Abdominal pain & no bloody stools. She stated that she was not getting any better and so she called the EMS who brought her to [facility]. She reported that the last vomiting occurred the morning of admission but had a BM 1 day [employer].The Labwork at the ED was mostly unremarkable except for a BUN/CR of 27/1.32. However, the abdominal X-ray had findings concerning for Small Bowel Obstruction. Off note, pt was admitted to the [facility] in 03/24/16 for similar symptoms. An abdominal CT done at that time did show SBO. She was seen/followed by surgery, was managed conservatively with NG suctioning, and she improved. She has Past abdominal surgeries involving TAHBSO & Cholecystecomy. ERP spoke with the surgeon (Dr. Medina). The patient was admitted and managed with conservative treatment . She was kept NPO and started on IVF. Initially thought to be more of ileus due to the paucitiy of clinical findings. Her serial AXR continued to show dilated loops conserning for PSBO. A CTS of the abdomen was ordered with gastroview but she had N/V . NGT was put to LIS. She eventually had BM and her AXR showed resolution of her PSBO. She is tolerating Mechanical Soft diet this morning and if she has no N/Y , we will discharge her today. Procedures Performed: none Discharge Disposition: Home self care Disposition: Home self-care Condition: Fair Discharge Activity: Activity as tolerated Discharge Diet: Low fat/chol, Mech soft Referrals: Juan C Khanna MD [Primary Care Provider] - Additional Patient Instructions (free text): Has [facility] ongoing, please call and fax discharge information to them. Follow up with PCP in 1 week. Prescriptions (Any new or edited meds): Sennosides/Docusate Sodium [Senokot-S] 2 tab PO DAILY #60 tab Complete Home Medications List: Complete Home Medication List: Aspirin [Aspirin Enteric Coated] 81 mg PO DAILY 09/09/13 Gabapentin 400 mg PO TID 09/09/13 Pramipexole Di-HCl [Mirapex] 0.125 mg PO HS 09/09/13 Pravastatin Sodium 40 mg PO DAILY 09/09/13 lamoTRIgine [Lamictal] 100 mg PO DAILY 09/09/13 Bisacodyl [Dulcolax] 5 mg PO DAILY PRN 01/05/14 Nitroglycerin 0.4 mg SL Q5MIN PRN 01/05/14 ALPRAZolam [Xanax] 0.25 mg PO BID PRN 05/11/14 Bupropion HCl [Wellbutrin Xl] 450 mg PO DAILY 05/11/14 Omeprazole [Prilosec] 40 mg PO DAILY 05/11/14 Tolterodine Tartrate [Detrol LA] 2 mg PO HS 12/22/15 Clopidogrel Bisulfate [Plavix] 75 mg PO DAILY 12/27/15 Cyanocobalamin [Vitamin B-12] 500 mcg PO DAILY 12/27/15 HYDROcodone/ACETAMINOPHEN [[place] 5-325 Tablet] 1 each PO QID PRN 12/27/15 Albuterol Sulfate 2.5 mg IH BID PRN 12/28/15 Nystatin [Mycostatin Cream] 30 gm TP BID 03/24/16 Silver Sulfadiazine [Silvadene] 1 appl TP BID 12/27/16 Sennosides/Docusate Sodium [Senokot-S] 2 tab PO DAILY #60 tab 12/31/16
[2016-12-31] MEDS: SILVER SULFADIAZINE 50 APPL JAR TP SCH (09:27)
[2016-12-31] MEDS: ASPIRIN 81 MG TABLET.DR PO SCH (09:27)
[2016-12-31] MEDS: GABAPENTIN 400 MG CAPSULE PO SCH (09:27)
[2016-12-31] MEDS: CLOPIDOGREL BISULFATE 75 MG TABLET PO SCH (09:27)
[2016-12-31] MEDS: NYSTATIN 30 APPL TUBE TP SCH (09:27)
[2016-12-31] MEDS: ENOXAPARIN SODIUM 40 MG/0.4 ML SYRG SC SCH (09:28)
[2016-12-31] MEDS: CYANOCOBALAMIN 1,000 MCG TABLET PO SCH (09:28)
[2016-12-31] MEDS: buPROPion HCL 150 MG TAB.SR.24H PO SCH (09:28)
[2016-12-31] MEDS: lamoTRIgine 100 MG TABLET PO SCH (09:28)
[2016-12-31 13:23] VITALS: BP 137/73
== END 2016-12-31 13:36 | disposition home health service (06) | DRG 389 ==
LOC: ER 18:08 → MS 21:07 → OBSVTOIN 21:07
PROVIDERS: ADMIT Nurse Practitioner; ATTEND Internal Medicine
DX: K56.5 Intestinal adhesions [bands] with obstruction (postinfection) (principal); N17.9 Acute kidney failure, unspecified; I12.9 Hypertensive chronic kidney disease with stage 1 through stage 4 chronic kidney disease, or unspecified chronic kidney disease; N18.3 Chronic kidney disease, stage 3 (moderate); E11.22 Type 2 diabetes mellitus with diabetic chronic kidney disease; Z86.73 Personal history of transient ischemic attack (TIA), and cerebral infarction without residual deficits; Z79.82 Long term (current) use of aspirin

== ENCOUNTER 2017-01-01 13:54 | Observation (INO) | payer MEDICARE, OTHER ==
[2017-01-01 14:24] LABS: Hematocrit 28.7 % (37.0-47.0); Hemoglobin 8.9 gm/dL (12.5-16.0); Mean Cell Volume 89.1 fl (78-100); Mean Corpuscular Hemoglobin 27.6 pg (27-31); Mean Platelet Volume 9.2 fl (6.0-9.5); Neutrophil # 3.5 K/mm3 (1.3-6.0); Neutrophil % 70.3 % (42-75.0); Platelet Count 139 K/mm3 (150-450); Red Blood Count 3.22 M/mm3 (4.2-5.4); Red Cell Distribution Width 14.8 % (11.5-14.0)
--- OUTSIDE RECORDS SUMMARY | 2017-01-01 14:30 | XMS REPORT | Continuity of Care Document ---
:1940 Author Organization [facility] ([facility]) Address [address] [place] [address] Phone [phone] Care Team Providers Name Role Phone Juan C Khanna Primary Care Provider [phone] Source Comments This disclosure is being made pursuant to the Care Everywhere program, applicable federal and state laws, and may not contain all informaitonavailable regarding this patient.[facility] ([facility]) Active Allergies and Adverse Reactions Allergen [...]
[2017-01-01 14:43] LABS: Anion Gap 13.1 mmol/L (6.8-13.8); BUN/Creatinine Ratio 10.8 (9.0-21.6); Bilirubin, Total 0.4 mg/dL (0.0-1.1); Ca. Corrected For Albumin 9.2 mg/dL (8.4-10.2); Calcium * 8.7 mg/dL (7.9-10.9); Carbon Dioxide 25.6 mmol/L (24-32.6); Potassium 3.7 mmol/L (3.4-4.6); Total Protein 6.2 gm/dL (6.2-8.2); Troponin I 0.044 ng/ml (0.00-0.10)
[2017-01-01 15:29] LABS: Urine Bilirubin Negative (NEGATIVE); Urine Ketone Negative (NEGATIVE); Urine Nitrite Negative (NEGATIVE); Urine Protein Negative (NEGATIVE); Urine Specific Gravity >=1.030 SP.GR. (1.005-1.010); Urine Urobilinogen Normal (NORMAL); Urine pH 5.5 pH (5.0-7.0)
[2017-01-01 15:39] LABS: Urine Appearance Clear; Urine Bacteria None Seen; Urine Blood 10 /ul (NEGATIVE); Urine Color Yellow; Urine RBC 0-5 /hpf (0-5); Urine WBC None Seen /hpf (0-5)
--- OUTSIDE RECORDS SUMMARY | 2017-01-01 16:16 | XMS REPORT | Continuity of Care Document ---
:1940 Author Organization [facility] ([facility]) Address [address] [place] [address] Phone [phone] Care Team Providers Name Role Phone Juan C Khanna Primary Care Provider [phone] Source Comments This disclosure is being made pursuant to the Care Everywhere program, applicable federal and state laws, and may not contain all informaitonavailable regarding this patient.[facility] ([facility]) Active Allergies and Adverse Reactions Allergen Noted [...]
--- NOTE | 2017-01-01 16:26 | ERNOTE ---
Medical Problem HPI - Narrative Date of Service: 01/01/17 - General Chief Complaint: General Assessment Time Seen by Provider: 01/01/17 14:14 Source: patient Exam Limitations: no limitations - Immun/Allergies/Home Medications Immunizations: IMMUNIZATION HX Immunizations Up to Date Yes History of Influenza Vaccine Yes Hx Pneumococcal Vaccination Yes Allergies/Adverse Reactions: Allergies chocolate flavor Allergy (Intermediate, Verified 01/01/17 14:11) Anaphylaxis ibuprofen Allergy (Mild, Verified 01/01/17 14:11) Nausea aspirin Adverse Reaction (Mild, Verified 01/01/17 14:11) Vomiting UPSET STOMACH Penicillins Adverse Reaction (Mild, Verified 01/01/17 14:11) Vomiting UPSET STOMACH Salicylates * [Salicylates] Adverse Reaction (Mild, Verified 01/01/17 14:11) Nausea Sulfa (Sulfonamide Antibiotics) [Sulfa(Sulfonamide Antibiotics)] Adverse Reaction (Mild, Verified 01/01/17 14:11) Vomiting UPSET STOMACH cabbage Allergy (Mild, Uncoded 01/01/17 14:11) Other Home Medications: HOME MEDICATIONS Aspirin [Aspirin Enteric Coated] 81 mg PO DAILY 09/09/13 [Last Taken Unknown] Gabapentin 400 mg PO TID 09/09/13 [Last Taken Unknown] Pramipexole Di-HCl [Mirapex] 0.125 mg PO HS 09/09/13 [Last Taken Unknown] Pravastatin Sodium 40 mg PO DAILY 09/09/13 [Last Taken Unknown] lamoTRIgine [Lamictal] 100 mg PO DAILY 09/09/13 [Last Taken Unknown] Bisacodyl [Dulcolax] 5 mg PO DAILY PRN 01/05/14 [Last Taken Unknown] Nitroglycerin 0.4 mg SL Q5MIN PRN 01/05/14 [Last Taken Unknown] ALPRAZolam [Xanax] 0.25 mg PO BID PRN 05/11/14 [Last Taken Unknown] Bupropion HCl [Wellbutrin Xl] 450 mg PO DAILY 05/11/14 [Last Taken Unknown] Omeprazole [Prilosec] 40 mg PO DAILY 05/11/14 [Last Taken Unknown] Tolterodine Tartrate [Detrol LA] 2 mg PO HS 12/22/15 [Last Taken Unknown] Clopidogrel Bisulfate [Plavix] 75 mg PO DAILY 12/27/15 [Last Taken Unknown] Cyanocobalamin [Vitamin B-12] 500 mcg PO DAILY 12/27/15 [Last Taken Unknown] HYDROcodone/ACETAMINOPHEN [[place] 5-325 Tablet] 1 each PO QID PRN 12/27/15 [Last Taken Unknown] Albuterol Sulfate 2.5 mg IH BID PRN 12/28/15 [Last Taken Unknown] Nystatin [Mycostatin Cream] 30 gm TP BID 03/24/16 [Last Taken Unknown] Silver Sulfadiazine [Silvadene] 1 appl TP BID 12/27/16 [Last Taken Unknown] Sennosides/Docusate Sodium [Senokot-S] 2 tab PO DAILY #60 tab 12/31/16 [Last Taken Unknown] - History of Present History Narrative: Patient presents to the ED via EMS. EMS relates they have been called to her house 4 times today alone for falls. She denies injuries. She complains of generalized weakness. She states mild BUSTILLO. No acute abdominal pain. She has chronic shoulder pains. She denies injuries from her fall. She cannot get around in her home. No acute neck pain/CP or SOB. Generalized weakness. Timing: constant Modifying Factors - (Improves): Present: other - nothing Modifying Factors - (Worsens): Present: other - nothing Review of Systems - Review of Systems Constitutional: Absent: fever Respiratory: Absent: shortness of breath Cardiology: Absent: chest pain Gastrointestinal/Abdominal: Present: eating less. Absent: vomiting Genitourinary: Absent: dysuria All Other Systems: All systems neg except as marked - Patient's Past Medical History Patient History - Medical: Arthritis, Diabetes Type 2, Depression, GERD, Glaucoma, Headache, Obesity, Osteoarthritis, Renal Failure, UTI'S, Other Patient History - Cardiac/Respiratory: CVA/Stroke, Hypertension, Hyperlipidemia Patient History - Cancer: Ovarian Patient History - Surgical Procedures: Cholecystectomy, Colonoscopy, D & C, EGD , Hysterectomy, Total Hip Replacement, Total Knee Replacement, Other Patient History - Other: None LMP (females 10-50): Menopausal - Family History Mother Family History - Medical: Family History - Cardiac/Respiratory: Coronary Heart Disease, CHF Father Family History - Medical: Family History - Cardiac/Respiratory: Coronary Heart Disease, CHF - Social History Living Situations: home Abuse History: No History of abuse Psych History: No pertinent hx Smoking Status: Former smoker Alcohol Use: none Drug Use: none - Immunizations Immunizations Up to Date: Yes Hx Pneumococcal Vaccination: Yes History of Influenza Vaccine: Yes Physical Exam - Physical Exam General Appearance: Present: alert, no apparent distress Eye Exam: Normal inspection: bilateral, PERRL: bilateral Ears, Nose, Throat: Present: dry mucous membranes Neck: Present: normal inspection Respiratory: Present: no respiratory distress, no accessory muscle use, lungs clear Cardiovascular/Chest: Present: regular rate, rhythm Gastrointestinal/Abdominal: Present: normal bowel sounds, nontender, soft Back Exam: Absent: CVA tenderness (R), CVA tenderness (L) Extremity Exam: Present: other - no injuries seen Neurological Exam: Present: other - generalized weakness. No acute unilateral focal motor deficits noted. Skin Exam: Absent: skin rash ED Progress - Results and Orders Patient's Lab Results:: I have reviewed the patient's lab results. - Vital Signs Patient's Vital Signs:: I have reviewed the patient's vital signs. Vital Signs: Vital Signs 01/01/17 01/01/17 01/01/17 14:04 14:12 14:48 Temperature 36.6 C Pulse Rate 80 77 Respiratory 14 14 Rate Blood Pressure 152/71 152/67 148/64 O2 Sat by Pulse 96 97 Oximetry 01/01/17 15:24 Temperature Pulse Rate 78 Respiratory 14 Rate Blood Pressure 167/80 O2 Sat by Pulse 100 Oximetry - EKG EKG read: Interp. by me EKG Comments: Likely sinus rate 77. Non-specific ST/T wave changes, no STEMI. - X-Ray X-Ray #1 X-Ray: chest Interpretation: Interp. by me X-ray Comments: No acute process - CT/Ultrasound CT/Ultrasound Narrative: No acute intracranial process. Official CT report reviewed. - Progress/Reassessment Chief Complaint: General Assessment Progress Note-Subjective: 01/01/17 16:32 She was too weak to go home. Seen in ED by Hospitalist who will admit. Departure - Departure Clinical Impression: Generalized weakness, Recurrent falls, Failure to thrive Disposition: [facility] Condition: Stable
[2017-01-01] MEDS ORDERED: ACETAMINOPHEN 500 MG TABLET PO ONE (16:43)
[2017-01-01] MEDS ORDERED: ENOXAPARIN SODIUM 40 MG/0.4 ML SYRG SC SCH (17:00)
[2017-01-01 17:17] LABS: Iron 32 mcg/dL (35-120); Transferrin Sat. (% Sat.) 15 % (15-55)
[2017-01-01] MEDS: INSULIN LISPRO 100 UNITS/ML VIAL SC SCH (17:33)
[2017-01-01] MEDS: NORMAL SALINE 1,000 ML IV PRN (17:36)
--- NOTE | 2017-01-01 20:10 | HP ---
Chief Complaint - Chief Complaint Date of Service: 01/01/17 Time of Service: 20:08 Chief Complaint: "Weakness, Falls". Source of HPI- Reliable, ERP report. History of Present Illness: Ms. Matute is a 76-yr-old [facility] pt of Dr. Juan C Khanna with a PMH of: Athritis , Cholelithiasis, Chronic Renal Failure, CVA, Depression, DM II,GERD, Glaucoma, HTN, Hepatitis & Peripheral Neuropathy. Pt was hospitalized on 12/27 for PSBO and was discharged on 12/31 after she had improvement with conservative management. Pt states that she has been doing well with her prior acute abdominal symptoms and denies having any n/v or abdominal pain. She reports that she has been feeling weak since discharge. She had multiple falls at home today due to her legs being weak. The EMS was called out to her home several times today to assist from falls and finally they chose to bring her to the ED for further evaluation. Pt denies hitting her head on any surface or object. She denies feeling dizzy or lightheaded prior to the falls. She also denies SOB , coughing or chest pain. She says her legs were "just weak. " She states that she has had no appetite since being discharged from the hospital and had little to drink or eat. During evaluation at the ED, Lab-work was mostly unremarkable except for Na of 146 & CR 1.57. No infection on the UA either. The imaging involving Head CT, CXR, & LT Shoulder X-ray did not have any acute findings. She will be admitted under observation status for IVF hydration and generalized weakness. - Patient's Past Medical History Patient History - Medical: Arthritis, Diabetes Type 2, Depression, GERD, Glaucoma, Headache, Obesity, Osteoarthritis, Renal Failure, UTI'S, Other Patient History - Cardiac/Respiratory: CVA/Stroke, Hypertension, Hyperlipidemia Patient History - Cancer: Ovarian Patient History - Surgical Procedures: Cholecystectomy, Colonoscopy, D & C, EGD , Hysterectomy, Total Hip Replacement, Total Knee Replacement, Other Patient History - Other: None LMP (females 10-50): Menopausal - Family History Mother Family History - Medical: Family History - Cardiac/Respiratory: Coronary Heart Disease, CHF Father Family History - Medical: Family History - Cardiac/Respiratory: Coronary Heart Disease, CHF - Social History Living Situations: alone Abuse History: No History of abuse Psych History: No pertinent hx Smoking Status: Former smoker Have you smoked in the past 12 months: No Do you dip or chew tobacco: No Patient requests Smoking Cessation Consult: No Initiate information on Smoking Cessation: No Alcohol Use: none Drug Use: none - Immunizations Immunizations Up to Date: Yes Hx Pneumococcal Vaccination: Yes History of Influenza Vaccine: Yes Review Of Systems (GEN) - Review of Systems Generalized/Overall Review: Present: Weakness. Absent: Chills, Fever EENTM: Absent: Eye Pain, Blurred Vision, Double Vision Respiratory: Absent: Cough, Shortness of Breath, Orthopnea Cardiac: Absent: Chest Pain, Edema, Palpitations Abdominal: Absent: Nausea, Vomiting, Hematemesis, Abdominal Pain, Constipation, Diarrhea Genitourinary: Absent: Burning, Frequency, Hesitancy Musculoskeletal: Absent: Joint Pain, Back Pain Neurological: Present: Weakness. Absent: Headache, Anxiety, Depressed Skin: Present: Dryness, Bruising Endocrine: Present: Intolerance to Cold. Absent: Increased Hunger Misc: All systems neg except as marked Immunizations: IMMUNIZATION HX Immunizations Up to Date Yes History of Influenza Vaccine Yes Hx Pneumococcal Vaccination Yes Allergies/Adverse Reactions: Allergies Allergy/AdvReac Type Severity Reaction Status Date / Time chocolate flavor Allergy Intermediate Anaphylaxis Verified 01/01/17 16:59 ibuprofen Allergy Mild Nausea Verified 01/01/17 16:59 aspirin AdvReac Mild Vomiting Verified 01/01/17 16:59 Penicillins AdvReac Mild Vomiting Verified 01/01/17 16:59 Salicylates * [Salicylates] AdvReac Mild Nausea Verified 01/01/17 16:59 Sulfa (Sulfonamide AdvReac Mild Vomiting Verified 01/01/17 16:59 Antibiotics) [Sulfa(Sulfonamide Antibiotics)] cabbage Allergy Mild Other Uncoded 01/01/17 16:59 Home Medications: HOME MEDICATIONS Aspirin [Aspirin Enteric Coated] 81 mg PO DAILY 09/09/13 [Last Taken Unknown] Gabapentin 400 mg PO TID 09/09/13 [Last Taken Unknown] Pramipexole Di-HCl [Mirapex] 0.125 mg PO HS 09/09/13 [Last Taken Unknown] Pravastatin Sodium 40 mg PO DAILY 09/09/13 [Last Taken Unknown] lamoTRIgine [Lamictal] 100 mg PO DAILY 09/09/13 [Last Taken Unknown] Bisacodyl [Dulcolax] 5 mg PO DAILY PRN 01/05/14 [Last Taken Unknown] Nitroglycerin 0.4 mg SL Q5MIN PRN 01/05/14 [Last Taken Unknown] ALPRAZolam [Xanax] 0.25 mg PO BID PRN 05/11/14 [Last Taken Unknown] Bupropion HCl [Wellbutrin Xl] 450 mg PO DAILY 05/11/14 [Last Taken Unknown] Omeprazole [Prilosec] 40 mg PO DAILY 05/11/14 [Last Taken Unknown] Tolterodine Tartrate [Detrol LA] 2 mg PO HS 12/22/15 [Last Taken Unknown] Clopidogrel Bisulfate [Plavix] 75 mg PO DAILY 12/27/15 [Last Taken Unknown] Cyanocobalamin [Vitamin B-12] 500 mcg PO DAILY 12/27/15 [Last Taken Unknown] HYDROcodone/ACETAMINOPHEN [[place] 5-325 Tablet] 1 each PO QID PRN 12/27/15 [Last Taken Unknown] Albuterol Sulfate 2.5 mg IH BID PRN 12/28/15 [Last Taken Unknown] Nystatin [Mycostatin Cream] 30 gm TP BID 03/24/16 [Last Taken Unknown] Silver Sulfadiazine [Silvadene] 1 appl TP BID 12/27/16 [Last Taken Unknown] Sennosides/Docusate Sodium [Senokot-S] 2 tab PO DAILY #60 tab 12/31/16 [Last Taken Unknown] Exam - Exam Vital Signs: Vital Signs - Last Taken Temp 36.4 C L 01/01/17 17:00 Pulse 73 01/01/17 17:00 Resp 18 01/01/17 17:00 BP 167/61 01/01/17 17:00 Pulse Ox 100 01/01/17 17:00 Constitutional: Present: Alert, Oriented x3, Cooperative, No distress, Elderly ENT Exam: Present: normal ENT inspection, dry mucous membranes. Absent: nasal drainage, pharyngeal erythema Eye Exam: bilateral eye: normal inspection, PERRL Neck: Present: full range of motion, supple, normal inspection Back Exam: Present: normal inspection Breasts: Present: Exam deferred Respiratory: Present: lungs clear, no accessory muscle use Cardiovascular/Chest: Present: normal peripheral pulses, regular rate, rhythm, no chest tenderness Abdomen: Present: Normal bowel sounds, soft, nontender /Rectal: Present: Exam deferred Extremity: Present: normal range of motion, non-tender, normal inspection Skin Exam: Present: no cyanosis, cool/dry, pallor Lymphatic: Present: no adenopathy Neurologic: Present: alert, normal mood/affect, oriented x 3 Appearance: Present: appropriate appearance, appropriate insight Eye contact: Present: cooperative, good eye contact, normal speech Diagnostic Studies: Laboratory Results WBC 5.0 K/mm3 (4.0-10.5) 01/01/17 14:17 RBC 3.22 M/mm3 (4.2-5.4) L 01/01/17 14:17 Hgb 8.9 gm/dL (12.5-16.0) L 01/01/17 14:17 Hct 28.7 % (37.0-47.0) L 01/01/17 14:17 MCV 89.1 fl (78-100) 01/01/17 14:17 MCH 27.6 pg (27-31) 01/01/17 14:17 MCHC 31.0 g/dl (32-36) L 01/01/17 14:17 RDW 14.8 % (11.5-14.0) H 01/01/17 14:17 Plt Count 139 K/mm3 (150-450) L 01/01/17 14:17 MPV 9.2 fl (6.0-9.5) 01/01/17 14:17 Immature Gran % (Auto) 0.20 % (0.001-0.429) 01/01/17 14:17 Immature Gran # (Auto) 0.01 K/mm3 (0.000-0.0310) 01/01/17 14:17 Neutrophils % 70.3 % (42-75.0) 01/01/17 14:17 Lymphocytes % 15.1 % (20-51) L 01/01/17 14:17 Monocytes % 9.8 % (0.0-9) H 01/01/17 14:17 Eosinophils % 4.2 % (0.0-3.0) H 01/01/17 14:17 Basophils % 0.4 % (0.0-1.0) 01/01/17 14:17 Nucleated RBC % 0.0 k/mm3 (0-1) 01/01/17 14:17 Neutrophils # 3.5 K/mm3 (1.3-6.0) 01/01/17 14:17 Lymphocytes # 0.8 k/mm3 (1.5-3.5) L 01/01/17 14:17 Monocytes # 0.5 k/mm3 (0.0-1.0) 01/01/17 14:17 Eosinophils # 0.2 k/mm3 (0.0-0.7) 01/01/17 14:17 Absolute Basophils 0.0 k/mm3 (0.0-0.1) 01/01/17 14:17 Sodium 146 mmol/L (132-142) H 01/01/17 14:17 Plasma Sodium 146 mmol/L (130-142) H 01/01/17 14:17 Potassium 3.7 mmol/L (3.4-4.6) 01/01/17 14:17 Chloride 111 mmol/L (97-106) H 01/01/17 14:17 Carbon Dioxide 25.6 mmol/L (24-32.6) 01/01/17 14:17 Anion Gap 13.1 mmol/L (6.8-13.8) 01/01/17 14:17 BUN 17 mg/dL (3-23) 01/01/17 14:17 Creatinine 1.57 mg/dL (0.4-1.4) H 01/01/17 14:17 Est GFR (Non-Af Amer) 34 mL/min (60-130) L 01/01/17 14:17 BUN/Creatinine Ratio 10.8 (9.0-21.6) 01/01/17 14:17 Random Glucose 87 mg/dL (70-110) D 01/01/17 14:17 Lactic Acid, Venous 1.4 mmol/L (0.4-1.9) 01/01/17 14:17 Calcium 8.7 mg/dL (7.9-10.9) 01/01/17 14:17 Calcium Adj for Albumin 9.2 mg/dL (8.4-10.2) 01/01/17 14:17 Iron 32 mcg/dL (35-120) L 01/01/17 14:30 TIBC 210 mcg/dL (260-445) L 01/01/17 14:30 Transferrin % Sat 15 % (15-55) 01/01/17 14:30 Total Bilirubin 0.4 mg/dL (0.0-1.1) 01/01/17 14:17 AST 31 U/L (0-48) 01/01/17 14:17 ALT 33 U/L (19-67) 01/01/17 14:17 Alkaline Phosphatase 70 U/L (50-170) 01/01/17 14:17 Troponin I 0.044 ng/ml (0.00-0.10) 01/01/17 14:17 Total Protein 6.2 gm/dL (6.2-8.2) 01/01/17 14:17 Albumin 3.0 gm/dl (3.4-5.0) L 01/01/17 14:17 TSH 0.944 uIU/mL (0.358-3.74) 01/01/17 14:17 Urine Color Yellow 01/01/17 15:17 Urine Appearance Clear 01/01/17 15:17 Urine pH 5.5 pH (5.0-7.0) 01/01/17 15:17 Ur Specific [place] >=1.030 SP.GR. (1.005-1.010) 01/01/17 15:17 Urine Protein Negative mg/dL (NEGATIVE) 01/01/17 15:17 Urine Glucose (UA) Negative mg/dL (NEGATIVE) 01/01/17 15:17 Urine Ketones Negative mg/dL (NEGATIVE) 01/01/17 15:17 Urine Blood 10 /ul (NEGATIVE) H 01/01/17 15:17 Urine Nitrate Negative (NEGATIVE) 01/01/17 15:17 Urine Bilirubin Negative mg/dl (NEGATIVE) 01/01/17 15:17 Urine Urobilinogen Normal EU/dl (NORMAL) 01/01/17 15:17 Ur Leukocyte Esterase Negative /ul (NEGATIVE) 01/01/17 15:17 Urine RBC 0-5 /hpf (0-5) 01/01/17 15:17 Urine WBC None seen /hpf (0-5) 01/01/17 15:17 Ur Epithelial Cells 0-5 /hpf (0-5) 01/01/17 15:17 Urine Bacteria None seen (NONE) 01/01/17 15:17 Urine Culture Comments No culture indicated 01/01/17 15:17 Stool Occult Blood Negative 01/01/17 15:17 Assessment/Plan - Assessment/Plan (1) Dehydration Assessment: Noted with CR of 1.57, Na 146 and weakness/falls- Hydrate with IVF. Check BMP in am. Problem: Acute (2) Generalized weakness Assessment: Will involve PT/OT, and have case management assist in placement finding. Problem: Acute (3) Recurrent falls Problem: Acute (4) GERD (gastroesophageal reflux disease) Problem: Chronic Qualifiers: Esophagitis presence: esophagitis presence not specified Qualified Code(s) : K21.9 - Gastro-esophageal reflux disease without esophagitis (5) HTN (hypertension) Problem: Chronic Qualifiers: Hypertension type: essential hypertension Qualified Code(s): I10 - Essential (primary) hypertension
[2017-01-01] MEDS ORDERED: HYDROcodone/ACETAMINOPHEN 1 EACH TABLET PO PRN (21:10)
[2017-01-01] MEDS ORDERED: ALPRAZolam 0.25 MG TABLET PO PRN (21:10)
[2017-01-01] MEDS ORDERED: ALBUTEROL SULFATE 2.5 MG/3 ML VIAL.NEB IH PRN (21:10)
[2017-01-01] MEDS ORDERED: NITROGLYCERIN 0.4 MG/TAB BTL SL PRN (21:10)
[2017-01-01] MEDS ORDERED: BISACODYL 5 MG TABLET.DR PO PRN (21:10)
[2017-01-01] MEDS ORDERED: GABAPENTIN 300 MG CAPSULE PO SCH (21:30)
[2017-01-01] MEDS ORDERED: PRAMIPEXOLE DI-HCL 0.5 MG TABLET PO SCH (21:30)
[2017-01-01] MEDS ORDERED: TOLTERODINE TARTRATE 2 MG CAPSULE PO SCH (21:30)
[2017-01-01] MEDS ORDERED: GABAPENTIN 400 MG CAPSULE ONE (21:45)
[2017-01-02] MEDS: NORMAL SALINE 1,000 ML IV PRN (01:16)
[2017-01-02 05:41] LABS: Hematocrit 29.4 % (37.0-47.0); Mean Cell Volume 89.1 fl (78-100); Mean Corpuscular Hemoglobin 27.3 pg (27-31); Mean Corpuscular Hgb Conc 30.6 g/dl (32-36); Mean Platelet Volume 9.9 fl (6.0-9.5); Neutrophil # 3.4 K/mm3 (1.3-6.0); Neutrophil % 69.9 % (42-75.0); Platelet Count 139 K/mm3 (150-450); White Blood Count 4.9 K/mm3 (4.0-10.5)
[2017-01-02 06:15] LABS: Anion Gap 15.3 mmol/L (6.8-13.8); BUN/Creatinine Ratio 8.7 (9.0-21.6); Blood Urea Nitrogen 13 mg/dL (3-23); Calcium * 8.6 mg/dL (7.9-10.9); Chloride 111 mmol/L (97-106); Glucose * 110 mg/dL (70-110); Potassium 3.3 mmol/L (3.4-4.6); Sodium 147 mmol/L (132-142)
[2017-01-02] MEDS ORDERED: PANTOPRAZOLE SODIUM 40 MG TABLET.EC PO SCH (07:00)
[2017-01-02] MEDS: INSULIN LISPRO 100 UNITS/ML VIAL SC SCH ×2 (07:07→11:39)
[2017-01-02] MEDS ORDERED: 0.5 NORMAL SALINE 1,000 ML IV PRN (07:46)
[2017-01-02] MEDS ORDERED: POTASSIUM CHLORIDE 20 MEQ TABLET.SA PO ONE (08:40)
--- NOTE | 2017-01-02 08:45 | PN ---
Progess Note - Interim Narrative: 01/02/17 08:44 Awaiting NH placement for SNF and strengthening exercises.
[2017-01-02] MEDS ORDERED: NYSTATIN 30 APPL TUBE TP SCH (09:00)
[2017-01-02] MEDS ORDERED: SENNOSIDES/DOCUSATE SODIUM 1 TAB TABLET PO SCH (09:00)
[2017-01-02] MEDS ORDERED: GABAPENTIN 400 MG CAPSULE PO SCH (09:00)
[2017-01-02] MEDS ORDERED: lamoTRIgine 100 MG TABLET PO SCH (09:00)
[2017-01-02] MEDS ORDERED: buPROPion HCL 150 MG TAB.SR.24H PO SCH (09:00)
[2017-01-02] MEDS ORDERED: SILVER SULFADIAZINE 25 APPL JAR TP SCH (09:00)
[2017-01-02] MEDS ORDERED: ASPIRIN 81 MG TABLET.DR PO SCH (09:00)
[2017-01-02] MEDS ORDERED: CLOPIDOGREL BISULFATE 75 MG TABLET PO SCH (09:00)
[2017-01-02] MEDS ORDERED: CYANOCOBALAMIN 1,000 MCG TABLET PO SCH (09:00)
[2017-01-02 10:28] VITALS: BP 155/82
--- NOTE | 2017-01-02 11:50 | DS ---
(1) Dehydration Problem: Acute (2) Failure to thrive Problem: Acute (3) Generalized weakness Problem: Acute (4) Recurrent falls Problem: Acute Description of Stay: Betzy is a 76 year old female who was previously admitted on 12/27/16 due to a PSBO and presented to the ER with c/o overall generalized weakness. since leaving the hospital since the last admission, the patient states that she has had very poor oral intake with frequent falls. patient was admitted for iv hydration and referral for NH admission. patient received iv fluids overnight and was able to be referred to a NH in the area the next morning. Orders were given to the NH for admission, including PT/OT. Procedures Performed: none Discharge Disposition: [facility] [place] Disposition: [facility] [place] Condition: Undetermined Discharge Activity: Activity as tolerated Discharge Diet: Mech soft, Other - vanilla ensure or boost between meals Discharge Level of Care:: [facility] - [facility] Therapy: Physicial Therapy, Occupation Therapy Referrals: Juan C Khanna MD [Primary Care Provider] - Problem Oriented Discharge Instructions to Patient/Family: Failure to Thrive, Adult, [id number] Additional Patient Instructions (free text): Be sure to drink enough water. Vanilla boost or ensure between meals. Physical therapy and occupational therapy will be ordered at the care center Follow up with your primary care physician in 3-4 weeks. Prescriptions (Any new or edited meds): ALPRAZolam [Xanax] 0.25 mg PO BID PRN #60 tablet PRN Reason: Anxiety HYDROcodone/ACETAMINOPHEN [[place] 5-325 Tablet] 1 each PO QID PRN #90 tablet PRN Reason: left knee pain Complete Home Medications List: Complete Home Medication List: Aspirin [Aspirin Enteric Coated] 81 mg PO DAILY 09/09/13 Gabapentin 400 mg PO TID 09/09/13 Pramipexole Di-HCl [Mirapex] 0.125 mg PO HS 09/09/13 Pravastatin Sodium 40 mg PO DAILY 09/09/13 lamoTRIgine [Lamictal] 100 mg PO DAILY 09/09/13 Bisacodyl [Dulcolax] 5 mg PO DAILY PRN 01/05/14 Nitroglycerin 0.4 mg SL Q5MIN PRN 01/05/14 Bupropion HCl [Wellbutrin Xl] 450 mg PO DAILY 05/11/14 Omeprazole [Prilosec] 40 mg PO DAILY 05/11/14 Tolterodine Tartrate [Detrol LA] 2 mg PO HS 12/22/15 Clopidogrel Bisulfate [Plavix] 75 mg PO DAILY 12/27/15 Cyanocobalamin [Vitamin B-12] 500 mcg PO DAILY 12/27/15 Albuterol Sulfate 2.5 mg IH BID PRN 12/28/15 Nystatin [Mycostatin Cream] 30 gm TP BID 03/24/16 Silver Sulfadiazine [Silvadene] 1 appl TP BID 12/27/16 Sennosides/Docusate Sodium [Senokot-S] 2 tab PO DAILY #60 tab 12/31/16 ALPRAZolam [Xanax] 0.25 mg PO BID PRN #60 tablet 01/02/17 HYDROcodone/ACETAMINOPHEN [[place] 5-325 Tablet] 1 each PO QID PRN #90 tablet 04/13
[2017-01-02] MEDS ORDERED: SIMVASTATIN 20 MG TABLET PO SCH (21:00)
== END 2017-01-02 12:40 ==
LOC: SUPCPDRO 13:54 → ER 13:54 → MS 16:13
PROVIDERS: ADMIT Nurse Practitioner Critical Care Medicine; ATTEND Internal Medicine
DX: E86.0 Dehydration (principal); R53.1 Weakness; R62.7 Adult failure to thrive; Z91.81 History of falling; I10 Essential (primary) hypertension; K21.9 Gastro-esophageal reflux disease without esophagitis; E11.9 Type 2 diabetes mellitus without complications; N18.9 Chronic kidney disease, unspecified; K75.9 Inflammatory liver disease, unspecified; G62.9 Polyneuropathy, unspecified; Z87.891 Personal history of nicotine dependence
CPT/HCPCS: 36415; 70450; 71010; 73030; 74020; 80048; 80053; 81001; 82272; 83540; 83550; 83605; 84443; 84484; 85025; 87086; 93005; 96360; 96372; 97161; 97165; 99284; G0378; G8978; G8979; G8980